=== PATIENT | female | born 1950 | race African-American/Black ===

== ENCOUNTER 2017-09-04 19:56 | Observation (INO) | payer OTHER ==
[2017-09-04] MEDS ORDERED: DEXTROSE 50%-WATER - 25 GM/50 ML VIAL IVPUSH ONE (20:18)
[2017-09-04 20:43] LABS: BASO # 0.1 # (0.1-1); BASO % 1.8 % (0-2.0); EOS % 0.3 % (0-4.5); LYMPH # 1.7 (8-40); MCH 29.2 pg (25.7-33.7); MCHC 32.6 g/dl (32.0-36.0); MEAN CELL VOLUME 89.4 fl (80-96); MEAN PLT VOLUME 8.7 fl (7.5-11.1); MONO # 0.6 # (3.8-10.2); NEUT # 5.2 # (42.8-82.8); NEUT % 67.7 % (42.8-82.8); PLATELET COUNT 327 K/MM3 (134-434); RDW 14.7 % (11.6-15.6); WHITE BLOOD COUNT 7.7 K/mm3 (4.0-10.0)
[2017-09-04] MEDS ORDERED: DEXTROSE 50%-WATER 25 GM/50 ML DISP.SYRIN ONE (20:43)
[2017-09-04 20:53] LABS: URINE APPEARANCE CLEAR; URINE BILIRUBIN NEGATIVE (NEGATIVE); URINE BLOOD 1+ (NEGATIVE); URINE COLOR STRAW; URINE GLUCOSE (UA) NEGATIVE (NEGATIVE); URINE KETONE NEGATIVE (NEGATIVE); URINE NITRITE NEGATIVE (NEGATIVE); URINE PROTEIN NEGATIVE (NEGATIVE); URINE UROBILINOGEN NEGATIVE mg/dL (0.2-1.0)
[2017-09-04 20:57] LABS: URINE LEUK ESTERASE 1+ (NEGATIVE)
[2017-09-04 20:59] LABS: URINE BACTERIA RARE /hpf (NONE SEEN); URINE MUCUS RARE; URINE RBC 9 /hpf (0-3); URINE WBC 7 /hpf (3-5)
--- NOTE | 2017-09-04 21:13 | PDOC ---
History of Present Illness <Richard Joseph - Last Filed: 09/04/17 22:17> - History of Present Illness Initial Comments: 09/04/17 21:06 "The patient is a 67 year old female, with a significant past medical history of DM and hypertension, who presents to the emergency department via EMS with low blood sugar. EMS reports that they were called because the family found the patient confused and not responding appropriately to questions. When they arrived, they checked her sugar and found it to be <20. They gave her glucagon and the sugar improved to 45, then subsequently to 60. Pt's mental status returned to baseline. The patient reports her last meal was around lunchtime and states she took her diabetes medication after eating this afternoon. Pt states that she is not taking insulin. However, upon review of her med list with her daughter via telephone, I found that she is taking Lantus and novolog. Daughter is unable to tell me the doses. Daughter states that pt has been having difficulty keeping track of her medications, often missing doses or taking them at the wrong times. Pt has had one prior episode of severe hypoglycemia which led to a similar clinical picture. Pt currently denies any complaints. She denies recent fevers, chills, headache or dizziness. She denies recent nausea, vomit, diarrhea or constipation. She denies recent dysuria, frequency, urgency or hematuria. She denies recent chest pain or shortness of breath. Allergies: NKA Past surgical history: None reported. Primary Care Physician: Dr. Kaur " <Clifford Mulligan - Last Filed: 09/04/17 22:53> - General Chief Complaint: Blood Sugar Problem Stated Complaint: Blood Sugar Problem Time Seen by Provider: 09/04/17 20:09 Past History <Richard Joseph - Last Filed: 09/04/17 22:17> - Suicide/Smoking/Psychosocial Hx Smoking History: Never smoked Have you smoked in the past 12 months: No Information on smoking cessation initiated: No Hx Alcohol Use: No Drug/Substance Use Hx: No <Clifford Mulligan - Last Filed: 09/04/17 22:53> - Past Medical History Allergies/Adverse Reactions: Allergies Allergy/AdvReac Type Severity Reaction Status Date / Time No Known Allergies Allergy Verified 09/04/17 20:07 Review of Systems - Review of Systems Comments:: 09/04/17 21:13 "GENERAL/CONSTITUTIONAL: +Confusion. No fever or chills. No weakness. HEAD, EYES, EARS, NOSE AND THROAT: No change in vision. No ear pain or discharge. No sore throat. CARDIOVASCULAR: No chest pain or shortness of breath. RESPIRATORY: No cough, wheezing, or hemoptysis. GASTROINTESTINAL: No nausea, vomiting, diarrhea or constipation. GENITOURINARY: No dysuria, frequency, or change in urination. MUSCULOSKELETAL: No joint or muscle swelling or pain. No neck or back pain. SKIN: No rash NEUROLOGIC: No headache, vertigo, loss of consciousness, or change in strength/sensation. ENDOCRINE: No increased thirst. No abnormal weight change. HEMATOLOGIC/LYMPHATIC: No anemia, easy bleeding, or history of blood clots. ALLERGIC/IMMUNOLOGIC: No hives or skin allergy. " <Clifford Mulligan - Last Filed: 09/04/17 22:53> *Physical Exam - Vital Signs Last Vital Signs Temp Pulse Resp BP Pulse Ox 98.1 F 61 14 131/102 100 09/04/17 20:07 09/04/17 20:07 09/04/17 20:07 09/04/17 20:07 09/04/17 20:07 <Richard Joseph - Last Filed: 09/04/17 22:17> - Vital Signs Last Vital Signs Temp Pulse Resp BP Pulse Ox 98.1 F 61 14 131/102 100 09/04/17 20:07 09/04/17 20:07 09/04/17 20:07 09/04/17 20:07 09/04/17 20:07 - Physical Exam Comments: 09/04/17 21:13 "GENERAL: Awake, alert, and confused, in no acute distress HEAD: No signs of trauma EYES: PERRLA, EOMI, sclera anicteric, conjunctiva clear ENT: Auricles normal inspection, hearing grossly normal, nares patent, oropharynx clear without exudates. Moist mucosa NECK: Nontender, no stepoffs, Normal ROM, supple, no lymphadenopathy, JVD, or masses LUNGS: Breath sounds equal, clear to auscultation bilaterally. No wheezes , and no crackles HEART: Regular rate and rhythm, normal S1 and S2, no murmurs, rubs or gallops ABDOMEN: Soft, nontender, normoactive bowel sounds. No guarding, no rebound. No masses EXTREMITIES: Normal range of motion, no edema. No clubbing or cyanosis. No cords , erythema, or tenderness NEUROLOGICAL: Cranial nerves II through XII intact. 5/5 strength and sensation in all extremities, Normal speech, normal gait SKIN: Warm, Dry, normal turgor, no rashes or lesions noted. " <Clifford Mulligan - Last Filed: 09/04/17 22:53> ED Treatment Course - LABORATORY CBC & Chemistry Diagram: 09/04/17 20:36 09/04/17 20:36 - ADDITIONAL ORDERS Additional order review: Laboratory Results 09/04/17 09/04/17 09/04/17 20:36 20:36 20:28 Sodium 142 Potassium 3.5 Chloride 105 Carbon Dioxide 29 Anion Gap 8 BUN 18 Creatinine 1.1 H Creat Clearance w eGFR 49.85 POC Glucometer Random Glucose 87 Calcium 9.3 Phosphorus 3.5 Magnesium 1.9 Total Bilirubin 0.5 AST 11 L ALT 17 Alkaline Phosphatase 86 Total Protein 8.1 Albumin 4.0 Urine Color Straw Urine Appearance Clear Urine pH 6.0 Ur Specific [place] 1.009 Urine Protein Negative Urine Glucose (UA) Negative Urine Ketones Negative Urine Blood 1+ H Urine Nitrite Negative Urine Bilirubin Negative Urine Urobilinogen Negative Urine WBC (Auto) 7 Urine RBC (Auto) 9 Ur Epithelial Cells Rare Urine Bacteria Rare Urine Mucus Rare 09/04/17 20:14 Sodium Potassium Chloride Carbon Dioxide Anion Gap BUN Creatinine Creat Clearance w eGFR POC Glucometer 71.90832 Random Glucose Calcium Phosphorus Magnesium Total Bilirubin AST ALT Alkaline Phosphatase Total Protein Albumin Urine Color Urine Appearance Urine pH Ur Specific [place] Urine Protein Urine Glucose (UA) Urine Ketones Urine Blood Urine Nitrite Urine Bilirubin Urine Urobilinogen Urine WBC (Auto) Urine RBC (Auto) Ur Epithelial Cells Urine Bacteria Urine Mucus 09/04/17 09/04/17 20:36 20:14 RBC 4.95 MCV 89.4 MCHC 32.6 RDW 14.7 MPV 8.7 Neutrophils % 67.7 Lymphocytes % 22.4 Monocytes % 7.8 Eosinophils % 0.3 Basophils % 1.8 POC Glucometer 71.18460 - Medications Given in the ED: ED Medications Discontinued Medications Generic Name Dose Route Start Last Admin Trade Name Freq PRN Reason Stop Dose Admin Dextrose 25 gm 09/04/17 20:18 12/25/17 20:53 D50w (Vial) - IVPUSH 09/04/17 20:19 25 gm NOW ONE Administration <Richard Joseph - Last Filed: 09/04/17 22:17> - LABORATORY CBC & Chemistry Diagram: 09/04/17 20:36 09/04/17 20:36 - ADDITIONAL ORDERS Additional order review: Laboratory Results 09/04/17 09/04/17 20:28 20:14 POC Glucometer 71.23788 Urine Color Straw Urine Appearance Clear Urine pH 6.0 Ur Specific [place] 1.009 Urine Protein Negative Urine Glucose (UA) Negative Urine Ketones Negative Urine Blood 1+ H Urine Nitrite Negative Urine Bilirubin Negative Urine Urobilinogen Negative Urine WBC (Auto) 7 Urine RBC (Auto) 9 Ur Epithelial Cells Rare Urine Bacteria Rare Urine Mucus Rare 09/04/17 09/04/17 20:36 20:14 RBC 4.95 MCV 89.4 MCHC 32.6 RDW 14.7 MPV 8.7 Neutrophils % 67.7 Lymphocytes % 22.4 Monocytes % 7.8 Eosinophils % 0.3 Basophils % 1.8 POC Glucometer 71.09416 - RADIOLOGY Radiology Studies Ordered: Category Date Time Status CHEST X-RAY PORTABLE* [RAD] Stat Radiology 09/04/17 20:19 Taken - Medications Given in the ED: ED Medications Discontinued Medications Generic Name Dose Route Start Last Admin Trade Name Yordan PRN Reason Stop Dose Admin Dextrose 25 gm 09/04/17 20:18 09/04/17 20:53 D50w (Vial) - IVPUSH 09/04/17 20:19 25 gm NOW ONE Administration <Clifford Mulligan - Last Filed: 09/04/17 22:53> Medical Decision Making - Medical Decision Making 09/04/17 21:13 67 F with altered mental status, now resolved, found to be 2/2 severe hypoglycemia. Pt now at neurologic baseline, AnO x3, with no neuro deficits. Pt' s hypoglycemia likely 2/2 med non-compliance given daughter's history that pt often confuses her medications. Pt is on Lantus and Novolog, unclear what doses and what time pt actually took the meds. - Labs - Frequent fingersticks - Will require obs admission due to long half-life of Lantus 09/04/17 22:53 CBC,CMP WBC 7.7 K/mm3 (4.0-10.0) 09/04/17 20:36 RBC 4.95 M/mm3 (3.60-5.2) 09/04/17 20:36 Hgb 14.4 GM/dL (10.7-15.3) 09/04/17 20:36 Hct 44.3 % (32.4-45.2) 09/04/17 20:36 MCV 89.4 fl (80-96) 09/04/17 20:36 MCH 29.2 pg (25.7-33.7) 09/04/17 20:36 MCHC 32.6 g/dl (32.0-36.0) 09/04/17 20:36 RDW 14.7 % (11.6-15.6) 09/04/17 20:36 Plt Count 327 K/MM3 (134-434) 09/04/17 20:36 MPV 8.7 fl (7.5-11.1) 09/04/17 20:36 Neutrophils % 67.7 % (42.8-82.8) 09/04/17 20:36 Lymphocytes % 22.4 % (8-40) 09/04/17 20:36 Monocytes % 7.8 % (3.8-10.2) 09/04/17 20:36 Eosinophils % 0.3 % (0-4.5) 09/04/17 20:36 Basophils % 1.8 % (0-2.0) 09/04/17 20:36 Sodium 142 mmol/L (136-145) 09/04/17 20:36 Potassium 3.5 mmol/L (3.5-5.1) 09/04/17 20:36 Chloride 105 mmol/L (98-107) 09/04/17 20:36 Carbon Dioxide 29 mmol/L (21-32) 09/04/17 20:36 Anion Gap 8 (8-16) 09/04/17 20:36 BUN 18 mg/dL (7-18) 09/04/17 20:36 Creatinine 1.1 mg/dL (0.55-1.02) H 09/04/17 20:36 Creat Clearance w eGFR 49.85 (>60) 09/04/17 20:36 POC Glucometer 71.87140 UNITS (80-120) 09/04/17 20:14 Random Glucose 87 mg/dL (74-106) 09/04/17 20:36 Calcium 9.3 mg/dL (8.5-10.1) 09/04/17 20:36 Phosphorus 3.5 mg/dL (2.5-4.9) 09/04/17 20:36 Magnesium 1.9 mg/dL (1.8-2.4) 09/04/17 20:36 Total Bilirubin 0.5 mg/dL (0.2-1.0) 09/04/17 20:36 AST 11 U/L (15-37) L 09/04/17 20:36 ALT 17 U/L (12-78) 09/04/17 20:36 Alkaline Phosphatase 86 U/L (45-117) 09/04/17 20:36 Total Protein 8.1 g/dl (6.4-8.2) 09/04/17 20:36 Albumin 4.0 g/dl (3.4-5.0) 09/04/17 20:[address] Lilly, who has accepted pt for admission to obs. <Clifford Mulligan - Last Filed: 09/04/17 22:53> *DC/Admit/Observation/Transfer - Attestations Scribe Attestion: 09/04/17 22:17 Documentation prepared by Richard Joseph, acting as medical office technician for Clifford Mulligan MD. <Richard Joseph - Last Filed: 09/04/17 22:17> - Discharge Dispostion Admit: Yes - Attestations Physician Attestion: 09/04/17 22:53 I, Dr. Clifford Mulligan MD, attest that this document has been prepared under my direction and personally reviewed by me in its entirety. I further attest, that it accurately reflects all work, treatment, procedures and medical decision -making performed by me. <Clifford Mulligan - Last Filed: 09/04/17 22:53> Diagnosis at time of Disposition: Hypoglycemia - Referrals Referrals: Alex aKur MD [Primary Care Provider] - - Patient Instructions - Post Discharge Activity
[2017-09-04 21:27] LABS: ANION GAP 8 (8-16); CALCIUM 9.3 mg/dL (8.5-10.1); CO2 29 mmol/L (21-32); CREATININE 1.1 mg/dL (0.55-1.02); GLUCOSE,RANDOM 87 mg/dL (74-106); PHOSPHOROUS 3.5 mg/dL (2.5-4.9); SGPT/ALT 17 U/L (12-78)
[2017-09-04 21:29] LABS: ALK PHOS 86 U/L (45-117); BILIRUBIN,TOTAL 0.5 mg/dL (0.2-1.0); TOT PROT 8.1 g/dl (6.4-8.2)
[2017-09-04 21:33] LABS: SGOT/AST 11 U/L (15-37)
[2017-09-04 22:52] LABS: URINE LEUK ESTERASE 1+ (NEGATIVE)
--- NOTE | 2017-09-04 23:13 | HP ---
CHIEF COMPLAINT: Hypoglycemia PCP: Dr. Kaur HISTORY OF PRESENT ILLNESS: 67 year old AA female with Pmhx of DM , HTN who presented to ED by EMS after she fund unresponsive. EMS found her to be hypoglycemic of 20 , they gave her glucagon and sugar that improve her blood sugar to 60. last meal was around 12 pm , she was ready to eat dinner when her grand daughter found her unresponsive. patient regain her consciousness before she got to the hospital. family denies any seizure activity before or after blacked out. on ED she denies any complains , she denies any fever, chills, headache, lightheadedness, N/V/D/C. She denies any chest pain, palpitation, sob, cough, abdominal pain, or any urinary symptoms. she had similar one episode before . she reports having brain surgery this year for pituitary tumor. ER course was notable for: (1) Glu 87 , D5w (2) BUn/Cr 18/1.1 (3) CXR Recent Travel:denies PAST MEDICAL HISTORY: DM, HTN , Pituitary tumor PAST SURGICAL HISTORY: brain surgery this year for Pituitary tumor Social History: Smoking:denies Alcohol:denies Drugs: denies Family History: Allergies No Known Allergies Allergy (Verified 09/04/17 20:07) HOME MEDICATIONS: REVIEW OF SYSTEMS CONSTITUTIONAL: Absent: fever, chills, diaphoresis, generalized weakness, malaise, loss of appetite, weight change HEENT: Absent: rhinorrhea, nasal congestion, throat pain, throat swelling, difficulty swallowing, mouth swelling, ear pain, eye pain, visual changes CARDIOVASCULAR: Absent: chest pain, syncope, palpitations, irregular heart rate, lightheadedness , peripheral edema RESPIRATORY: Absent: cough, shortness of breath, dyspnea with exertion, orthopnea, wheezing, stridor, hemoptysis GASTROINTESTINAL: Absent: abdominal pain, abdominal distension, nausea, vomiting, diarrhea, constipation, melena, hematochezia GENITOURINARY: Absent: dysuria, frequency, urgency, hesitancy, hematuria, flank pain, genital pain MUSCULOSKELETAL: Absent: myalgia, arthralgia, joint swelling, back pain, neck pain SKIN: Absent: rash, itching, pallor HEMATOLOGIC/IMMUNOLOGIC: Absent: easy bleeding, easy bruising, lymphadenopathy, frequent infections ENDOCRINE: Absent: unexplained weight gain, unexplained weight loss, heat intolerance, cold intolerance NEUROLOGIC: Absent: headache, focal weakness or paresthesias, dizziness, unsteady gait, seizure, mental status changes, bladder or bowel incontinence PSYCHIATRIC: Absent: anxiety, depression, suicidal or homicidal ideation, hallucinations. PHYSICAL EXAMINATION Vital Signs - 24 hr 09/04/17 20:07 Temperature 98.1 F Pulse Rate 61 Respiratory 14 Rate Blood Pressure 131/102 O2 Sat by Pulse 100 Oximetry (%) GENERAL: Awake, alert, and fully oriented, in no acute distress. HEAD: Normal with no signs of trauma. EYES: Pupils equal, round and reactive to light, sclera anicteric, conjunctiva clear. EARS, NOSE, THROAT: Moist mucous membranes. NECK: Normal range of motion, supple without lymphadenopathy, JVD, LUNGS: Breath sounds equal, clear to auscultation bilaterally. No wheezes, and no crackles. No accessory muscle use. HEART: Regular rate and rhythm, normal S1 and S2 without murmur, rub or gallop. ABDOMEN: Soft, nontender, not distended, normoactive bowel sounds, no guarding, no rebound, no masses. No hepatomegaly or splenomegaly. LOWER EXTREMITIES: 2+ pulses, warm, well-perfused. No calf tenderness. No peripheral edema. NEUROLOGICAL: good mentation Normal speech. Normal gait. PSYCHIATRIC: Cooperative. Good eye contact. Appropriate mood and affect. SKIN: Warm, dry, normal turgor, no rashes or lesions noted, normal capillary refill. Laboratory Results - last 24 hr 09/04/17 09/04/17 09/04/17 20:14 20:28 20:36 WBC RBC Hgb Hct MCV MCH MCHC RDW Plt Count MPV Neutrophils % Lymphocytes % Monocytes % Eosinophils % Basophils % Sodium Potassium Chloride Carbon Dioxide Anion Gap BUN Creatinine Creat Clearance w eGFR POC Glucometer 71.75001 Random Glucose Calcium Phosphorus Magnesium 1.9 Total Bilirubin AST ALT Alkaline Phosphatase Total Protein Albumin Urine Color Straw Urine Appearance Clear Urine pH 6.0 Ur Specific [place] 1.009 Urine Protein Negative Urine Glucose (UA) Negative Urine Ketones Negative Urine Blood 1+ H Urine Nitrite Negative Urine Bilirubin Negative Urine Urobilinogen Negative Ur Leukocyte Esterase 1+ H Urine WBC (Auto) 7 Urine RBC (Auto) 9 Ur Epithelial Cells Rare Urine Bacteria Rare Urine Mucus Rare 09/04/17 09/04/17 20:36 20:36 WBC 7.7 RBC 4.95 Hgb 14.4 Hct 44.3 MCV 89.4 MCH 29.2 MCHC 32.6 RDW 14.7 Plt Count 327 MPV 8.7 Neutrophils % 67.7 Lymphocytes % 22.4 Monocytes % 7.8 Eosinophils % 0.3 Basophils % 1.8 Sodium 142 Potassium 3.5 Chloride 105 Carbon Dioxide 29 Anion Gap 8 BUN 18 Creatinine 1.1 H Creat Clearance w eGFR 49.85 POC Glucometer Random Glucose 87 Calcium 9.3 Phosphorus 3.5 Magnesium Total Bilirubin 0.5 AST 11 L ALT 17 Alkaline Phosphatase 86 Total Protein 8.1 Albumin 4.0 Urine Color Urine Appearance Urine pH Ur Specific [place] Urine Protein Urine Glucose (UA) Urine Ketones Urine Blood Urine Nitrite Urine Bilirubin Urine Urobilinogen Ur Leukocyte Esterase Urine WBC (Auto) Urine RBC (Auto) Ur Epithelial Cells Urine Bacteria Urine Mucus CBC, BMP 09/04/17 20:36 09/04/17 20:36 09/04/17 CXR : reviewed ASSESSMENT/PLAN: 67 year old AA female with Pmhx of DM , HTN who presented to ED by EMS after she fund unresponsive , was found to have sever hypoglycemia and was admitted for further evaluation # Hypoglycemia * Hold home meds * ISS * BGM Q4h * hgbA1c * monitor * admit to observe * please confirm meds with pcp. * low sodium diabetic diet * # ABIMAEL , possible 2/2 low oral intake * BUN/cr 18/1.1 * IV fluids * repeat BMP in AM * urine lytes * avoid nephrotoxic agents * # HTN, continue home meds # Moribid obesity * consulted about loosing weight with goal one pound per week * consulted about diabetic diet, witl small multiple meals , and modified life style #FEN * D5w received in ED , * E: WNL , monitor * N: low sodium diabetic diet # proph * SCDs both legs * # dispo * Admit to obs Visit type - Emergency Visit Emergency Visit: Yes ED Registration Date: 09/04/17 Care time: The patient presented to the Emergency Department on the above date and was hospitalized for further evaluation of their emergent condition. - New Patient This patient is new to me today: Yes Date on this admission: 09/05/17 - Critical Care Critical Care patient: No
[2017-09-05] MEDS ORDERED: DEXTROSE 5%-0.45% SALINE 1,000 ML IV SCH (01:15)
[2017-09-05] MEDS ORDERED: HEPARIN NA (PORCINE) 5,000 UNITS/ML 1ML VIAL ONE (06:13)
[2017-09-05] MEDS: HEPARIN NA (PORCINE) 5,000 UNITS/ML 1ML VIAL SQ SCH ×2 (06:24→16:02)
--- NOTE | 2017-09-05 06:40 | PN ---
Teaching Attending Note Name of Resident: Juanito Tolentino ATTENDING PHYSICIAN STATEMENT I saw and evaluated the patient. I reviewed the resident's note and discussed the case with the resident. I agree with the resident's findings and plan as documented. SUBJECTIVE: OBJECTIVE: ASSESSMENT AND PLAN: patient was admitted for hypoglycemia monitor for signs of hypoglycemia education for insulin use
[2017-09-05 06:52] LABS: BASO # 0.1 # (0.1-1); EOS # 0.1 # (0-4.5); EOS % 1.5 % (0-4.5); LYMPH # 2.4 (8-40); MCH 29.9 pg (25.7-33.7); MCHC 33.4 g/dl (32.0-36.0); MEAN CELL VOLUME 89.5 fl (80-96); MEAN PLT VOLUME 9.2 fl (7.5-11.1); MONO # 0.6 # (3.8-10.2); NEUT % 60.5 % (42.8-82.8); PLATELET COUNT 318 K/MM3 (134-434); RDW 14.9 % (11.6-15.6); WHITE BLOOD COUNT 8.3 K/mm3 (4.0-10.0)
[2017-09-05] MEDS ORDERED: LEVOTHYROXINE NA 75 MCG TABLET (FP) PO SCH (07:00)
[2017-09-05 07:20] LABS: ALBUMIN 3.4 g/dl (3.4-5.0); ANION GAP 10 (8-16); BILIRUBIN,TOTAL 0.4 mg/dL (0.2-1.0); CALCIUM 9.6 mg/dL (8.5-10.1); CO2 28 mmol/L (21-32); GLUCOSE,RANDOM 100 mg/dL (74-106); SGOT/AST 12 U/L (15-37); SGPT/ALT 16 U/L (12-78); TOT PROT 6.7 g/dl (6.4-8.2)
[2017-09-05 07:21] LABS: ALK PHOS 81 U/L (45-117)
[2017-09-05] MEDS: INSULIN SLIDING SCALE (NOVOLOG) 1 VIAL SQ SCH ×3 (08:13→16:43)
[2017-09-05] MEDS ORDERED: PANTOPRAZOLE 40 MG TABLET (FP) PO SCH (10:00)
[2017-09-05] MEDS ORDERED: METOPROLOL TARTRATE 50 MG TABLET (FP) PO SCH (10:00)
[2017-09-05] MEDS ORDERED: amLODIPine BESYLATE 5 MG TABLET (FP) PO SCH (10:00)
[2017-09-05] MEDS ORDERED: CHOLECALCIFEROL (VITAMIN D3) 1,000 UNIT TABLET (FP) PO SCH (10:00)
[2017-09-05] MEDS ORDERED: POTASSIUM CHLORIDE TABS 20 MEQ TABLET.ER (FP) PO ONE ×2 (10:26→10:45)
[2017-09-05 12:01] VITALS: BMI 30.1
[2017-09-05] MEDS ORDERED: INSULIN (NOVOLOG) ASPART 100 UNITS/ML 10ML VIAL ONE (12:41)
--- NOTE | 2017-09-05 13:10 | EKG ---
Test Reason : Blood Pressure : / mmHG Vent. Rate : 061 BPM Atrial Rate : 061 BPM P-R Int : 120 ms QRS Dur : 102 ms QT Int : 428 ms P-R-T Axes : 050 002 089 degrees QTc Int : 430 ms NORMAL SINUS RHYTHM NONSPECIFIC ST AND T WAVE ABNORMALITY ABNORMAL ECG WHEN COMPARED WITH ECG OF 04-SEP-2017 20:56, PREVIOUS ECG HAS UNDETERMINED RHYTHM, NEEDS REVIEW Confirmed by MD Joseph, Pepe ([id number]) on 09/05/2017 1:09:59 PM Referred By: Confirmed By:Pepe Ruiz MD
--- NOTE | 2017-09-05 14:49 | DS ---
Physical Examination Vital Signs: Vital Signs Temperature 36.8 C 09/05/17 09:00 Pulse Rate 54 L 09/05/17 12:32 Respiratory Rate 18 09/05/17 12:32 Blood Pressure 128/70 09/05/17 12:32 O2 Sat by Pulse Oximetry (%) 98 09/05/17 12:32 Constitutional: Yes: Well Nourished, No Distress, Calm Cardiovascular: Yes: Regular Rate and Rhythm. No: Gallop, Murmur, Rub Respiratory: Yes: Regular, CTA Bilaterally. No: Rales, Rhonchi, Wheezes Gastrointestinal: Yes: Normal Bowel Sounds, Soft. No: Distention, Tenderness Extremities: Yes: WNL Edema: No Labs: CBC, BMP 09/05/17 06:36 09/05/17 06:36 Discharge Summary Reason For Visit: HYPOGLYCEMIA Current Active Problems Hypoglycemia (Acute) Hospital Course: Ms Montiel is a very pleasant 67 year old female who comes in with hypoglycemia. She says she took her metformin but did not eat and that is what caused her blood sugar to drop. She was admitted under observation. She was given dextrose in saline and her glucose improved. Her IVFs were stopped and she was given lunch which she tolerated. She is currently safe for discharge home. She was instructed to change her metformin to daily and have close follow up with Dr Kaur. 31 minutes spent in preparation of this discharge Condition: Good - Instructions Diet, Activity, Other Instructions: resume previous diet and activity Referrals: Alex Kaur MD [Primary Care Provider] - Disposition: HOME - Home Medications Comprehensive Discharge Medication List: Ambulatory Orders Amlodipine Besylate 5 mg PO DAILY 09/05/17 Cholecalciferol (Vitamin D3) [Vitamin D3] 2,000 unit PO DAILY 09/05/17 Levothyroxine Sodium [Levo-T] 75 mcg PO DAILY 09/05/17 Metformin HCl 500 mg PO DAILY #30 tablet 09/05/17 Metoprolol Tartrate 50 mg PO BID 09/05/17 Pantoprazole Sodium 40 mg PO DAILY 09/05/17
[2017-09-05 15:34] VITALS: BP 116/65; PULSE 59; TEMP 98.2
== END 2017-09-05 19:12 | disposition home or self-care (01) ==
LOC: JER 19:56 → JERBED 22:53 → J5S 09-05 13:30
PROVIDERS: ADMIT Internal Medicine; ATTEND Internal Medicine
PROC: 3E033GC Introduction of Other Therapeutic Substance into Peripheral Vein, Percutaneous Approach (ICD-10-PCS; principal; 2017-09-04)
PROC: 3E013VG Introduction of Insulin into Subcutaneous Tissue, Percutaneous Approach (ICD-10-PCS; 2017-09-04)
DX: E11.649 Type 2 diabetes mellitus with hypoglycemia without coma (principal); Z79.4 Long term (current) use of insulin; Z79.84 Long term (current) use of oral hypoglycemic drugs; N17.9 Acute kidney failure, unspecified; I10 Essential (primary) hypertension; E66.01 Morbid (severe) obesity due to excess calories; Z68.30 Body mass index [BMI] 30.0-30.9, adult
CPT/HCPCS: 36415; 71010-TC; 80053; 81003; 81015; 83735; 84100; 85025; 93005; 93010; 96372; 96374; 99283-25; G0378; J1644

== ENCOUNTER 2017-09-24 22:43 | Inpatient (IN) | payer OTHER ==
--- NOTE | 2017-09-24 23:03 | PDOC ---
Attending Attestation - Resident Resident Name: Jose Ramos - ED Attending Attestation I have performed the following: I have examined & evaluated the patient, The case was reviewed & discussed with the resident, I agree w/resident's findings & plan - HPI HPI: 09/25/17 01:39 Pt comes with AMS. Pt comes with lethargy and fever. Pt had a seizure in the ambulance as she was driving here. Pt has normal labs, except for a positive troponin - which is prossibly solely cardiac damage, as she has flipped and flat Lateral T waves on the EKG. She is influenza A positive, and we are unable to give her Tamiflu, as she is altered. - Physicial Exam PE: 09/24/17 23:54 pt is febrile; unkempt; pt has coarse breath sounds bilaterally; likely aspirated after her seizure; or she has a pneumonia. Pt - Medical Decision Making 09/25/17 00:28 Pt has + influenza A 09/25/17 00:49 Patient Name: GERDA MACHUCA THIS IS A PRELIMINARY REPORT FROM [facility] [employer] DATE OF SERVICE: 2017-09-25 00:04:13 IMAGES: 141 EXAM: CT HEAD without contrast HISTORY: New onset lethargy COMPARISON: None. FINDINGS: The ventricular system is midline and nondilated. The sulcal pattern is normal for the patient's age. Mild small vessel ischemic changes are noted. There is a 2.9 x 2.9 cm suprasellar mass with minimal calcification. Neoplasm and aneurysm are both considered. There is no bleed, extra-axial fluid collection or mass effect. No skull fracture or skull lesion is identified. Diffuse sinus opacification consistent with sinusitis. The bilateral mastoid air cells are clear. IMPRESSION: 2.9 cm suprasellar mass may indicate neoplasm or aneurysm and should be followed up with enhanced MRI/MRA or enhanced CT/CTA. Diffuse sinusitis. THIS DOCUMENT HAS BEEN ELECTRONICALLY SIGNED 09/25/17 01:00 Pt will need an MRI/MRA in the AM to eval the suprasellar findings (we know that she has a pituitary tumor, but our understanding is that she had the tumor removed.) Pt has low O2 Sat on RA; she has coarse BS bilaterally. She may have pneumonia or aspiration. CXR demonstrates enlarged heart and right sided increased markings in the lung ugalde Pt has dry mouth poor dentition. She appears dehydrated. Na/K+ electrolytes are normal EKG shows flat flipped T waves laterally. She has a + trop. Pt is febrile to 103 09/25/17 01:11 Pt admitted to [facility] last month. We put a page out for them. 09/25/17 02:05 Patient Name: GERDA MACHUCA THIS IS A PRELIMINARY REPORT FROM [facility] [employer] DATE OF SERVICE: 2017-09-24 23:31:01 IMAGES: 2 EXAM: XR CHEST HISTORY: Rule out pneumonia COMPARISON: None. FINDINGS: Left ventricular hypertrophy is noted. Left lower lobe consolidation may represent pneumonia. There is a questionable small left pleural effusion. IMPRESSION: Possible left lower lobe pneumonia with small effusion.
--- NOTE | 2017-09-24 23:11 | PDOC ---
History of Present Illness <Hallie Aquino - Last Filed: 09/25/17 02:20> - General History Source: Patient Exam Limitations: No Limitations - History of Present Illness Initial Comments: 09/24/17 23:08 The patient is a 67F with a PMH of HTN, DM, seizure disorder, hypothyroidism, s/ p pituitary ca removal who presents to the ED from home with lethargy. Hx is provided only by EMS. EMS states that the patient has had increased lethargy and AMS starting today. She's had decreased PO intake. EMS states that the patient had a seizure on their way to the ambulance. This was stopped with 5 midazolam. No other history was provided. <Jose Ramos - Last Filed: 09/25/17 03:31> - General Chief Complaint: Lethargy Stated Complaint: ALTERED MENTAL STATUS Time Seen by Provider: 09/24/17 22:47 Past History <Hallie Aquino - Last Filed: 09/25/17 02:20> - Past Medical History Anemia: No Asthma: No Cancer: No Cardiac Disorders: No CVA: No COPD: No CHF: No Dementia: No Diabetes: Yes GI Disorders: No Disorders: No HTN: Yes Hypercholesterolemia: No Liver Disease: No Seizures: No Thyroid Disease: No - Surgical History Abdominal Surgery: No Appendectomy: No Cardiac Surgery: No Cholecystectomy: No Lung Surgery: No Neurologic Surgery: No Orthopedic Surgery: No - Suicide/Smoking/Psychosocial Hx Smoking History: Unknown if ever smoked Have you smoked in the past 12 months: No Information on smoking cessation initiated: No Hx Alcohol Use: No Drug/Substance Use Hx: No Substance Use Type: None Hx Substance Use Treatment: No <Jose Ramos - Last Filed: 09/25/17 03:31> - Past Medical History Allergies/Adverse Reactions: Allergies Allergy/AdvReac Type Severity Reaction Status Date / Time No Known Allergies Allergy Verified 09/24/17 22:46 Home Medications: Ambulatory Orders Amlodipine Besylate 5 mg PO DAILY 09/05/17 Cholecalciferol (Vitamin D3) [Vitamin D3] 2,000 unit PO DAILY 09/05/17 Levothyroxine Sodium [Levo-T] 75 mcg PO DAILY 09/05/17 Metformin HCl 500 mg PO DAILY #30 tablet 09/05/17 Metoprolol Tartrate 50 mg PO BID 09/05/17 Pantoprazole Sodium 40 mg PO DAILY 09/05/17 Review of Systems - Review of Systems Able to Perform ROS?: No (Clinical condition) Is the patient limited Turkmen proficient: No <Jose Ramos - Last Filed: 09/25/17 03:31> *Physical Exam - Vital Signs Last Vital Signs Temp Pulse Resp BP Pulse Ox 103.9 F H 92 H 16 148/92 93 L 09/25/17 00:01 09/24/17 22:46 09/24/17 22:46 09/24/17 22:46 09/24/17 22:46 <Darcy Aquinoreen - Last Filed: 09/25/17 02:20> - Vital Signs Last Vital Signs Temp Pulse Resp BP Pulse Ox 103.4 F H 92 H 16 148/92 93 L 09/24/17 23:03 09/24/17 22:46 09/24/17 22:46 09/24/17 22:46 09/24/17 22:46 - Physical Exam Comments: 09/24/17 23:32 GENERAL: Well developed, well nourished. Lethargic. HEENT: Normocephalic, atraumatic. Hearing grossly normal. Moist mucous membranes. NECK: Supple. Full ROM. No JVD. CARDIOVASCULAR: Regular rate and rhythm. No murmurs, rubs, or gallops. PULMONARY: No evidence of respiratory distress. Transmitted upper respiratory sounds heard bilaterally. ABDOMINAL: Soft. Non-tender. Non-distended. No rebound or guarding. MUSCULOSKELETAL: No bony deformities or tenderness. EXTREMITIES: No cyanosis. No clubbing. No edema. No calf tenderness. SKIN: Warm and dry. Normal capillary refill. No rashes. No jaundice. NEUROLOGICAL: Lethargic, localizes to painful stimuli, not responding to verbal stimuli. PSYCHIATRIC: Cooperative. Good eye contact. Appropriate mood and affect. <Jose Ramos - Last Filed: 09/25/17 03:31> ED Treatment Course - LABORATORY CBC & Chemistry Diagram: 09/24/17 23:55 09/24/17 23:55 - ADDITIONAL ORDERS Additional order review: Laboratory Results 09/24/17 09/24/17 09/24/17 23:55 23:55 23:55 PT with INR 13.10 H INR 1.16 H PTT (Actin FS) 32.8 Sodium 140 Potassium 3.5 Chloride 104 Carbon Dioxide 27 Anion Gap 9 BUN 6 L Creatinine 1.2 H Creat Clearance w eGFR 45.09 Random Glucose 137 H Calcium 8.9 Total Bilirubin 0.9 D AST 62 H D ALT 59 D Alkaline Phosphatase 69 Creatine Kinase 93 Troponin I 0.13 H Total Protein 7.2 Albumin 3.7 09/24/17 00:01 Influenza Types A,B Antigen (SIERRA) - Preliminary Nasopharyngeal Swab - Preliminary 09/24/17 23:55 RBC 4.68 MCV 88.7 MCHC 33.4 RDW 14.9 MPV 9.7 Neutrophils % 62.6 Lymphocytes % 21.4 D Monocytes % 13.3 H Eosinophils % 1.4 Basophils % 1.3 - RADIOLOGY Radiology Studies Ordered: Category Date Time Status CHEST X-RAY PORTABLE* [RAD] Stat Radiology 09/24/17 23:03 Taken - Medications Given in the ED: ED Medications Discontinued Medications Generic Name Dose Route Start Last Admin Trade Name Freq PRN Reason Stop Dose Admin Acetaminophen 1,000 mg 09/24/17 23:29 09/24/17 23:53 Ofirmev Injection - IVPB 09/24/17 23:30 1,000 mg ONCE ONE Administration Sodium Chloride 1,000 ml 09/24/17 23:14 09/24/17 23:52 Normal Saline - IV 09/24/17 23:15 1,000 ml ONCE ONE Administration <Hallie Aquino - Last Filed: 09/25/17 02:20> - LABORATORY CBC & Chemistry Diagram: 09/24/17 23:55 09/24/17 23:55 <Jose Ramos - Last Filed: 09/25/17 03:31> Medical Decision Making - Medical Decision Making 09/25/17 03:21 The patient is a 67F with a PMH of HTN, DM, seizure disorder, hypothyroidism, s/ p pituitary ca removal who presents to the ED with lethargy. BGL was 170. Septic protocol is being followed as the patient has a temp of 103. Flu A positive. Fluids and broad spectrum abx with IV tylenol being given. CXR shows new onset PNA. Attending admitted pt to ICU for further monitoring. <Jose Ramos - Last Filed: 09/25/17 03:31> *DC/Admit/Observation/Transfer - Discharge Dispostion Admit: Yes <Hallie Aquino - Last Filed: 09/25/17 02:20> <Jose Ramos - Last Filed: 09/25/17 03:31> Diagnosis at time of Disposition: Seizure, Influenza A, Altered mental status, Fever, Rhonchi, Pneumonia - Discharge Dispostion Condition at time of disposition: Guarded
[2017-09-24] MEDS ORDERED: SODIUM CHLORIDE 0.9% 1000 ML INFUS.BAG IV ONE (23:14)
[2017-09-24] MEDS ORDERED: ACETAMINOPHEN 1000 MG/100 ML VIAL (NON FORMULARY) IVPB ONE (23:29)
[2017-09-24] MEDS ORDERED: ACETAMINOPHEN INJECTION 100 ML IVPB ONE (23:54)
[2017-09-25] LABS: BASO % 1.3 % (0-2.0); EOS % 1.4 % (0-4.5); HEMATOCRIT 41.5 % (32.4-45.2); HEMOGLOBIN 13.9 GM/dL (10.7-15.3); LYMPH % 21.4 % (8-40); MCH 29.7 pg (25.7-33.7); MCHC 33.4 g/dl (32.0-36.0); MEAN CELL VOLUME 88.7 fl (80-96); MEAN PLT VOLUME 9.7 fl (7.5-11.1); MONO % 13.3 % (3.8-10.2); NEUT % 62.6 % (42.8-82.8); PLATELET COUNT 245 K/MM3 (134-434); RBC 4.68 M/mm3 (3.60-5.2); RDW 14.9 % (11.6-15.6)
[2017-09-25 00:22] LABS: INR 1.16 (0.82-1.09); PROTHROMBIN TIME (PATIENT) 13.1 SEC (9.98-11.88)
[2017-09-25 00:28] LABS: ALBUMIN 3.7 g/dl (3.4-5.0); ANION GAP 9 (8-16); BILIRUBIN,TOTAL 0.9 mg/dL (0.2-1.0); BLOOD UREA NITROGEN 6 mg/dL (7-18); CALCIUM 8.9 mg/dL (8.5-10.1); CHLORIDE 104 mmol/L (98-107); CO2 27 mmol/L (21-32); CREATININE 1.2 mg/dL (0.55-1.02); GLUCOSE,RANDOM 137 mg/dL (74-106); POTASSIUM 3.5 mmol/L (3.5-5.1); SGOT/AST 62 U/L (15-37); SGPT/ALT 59 U/L (12-78); SODIUM 140 mmol/L (136-145); TOT PROT 7.2 g/dl (6.4-8.2)
[2017-09-25 00:31] LABS: ALK PHOS 69 U/L (45-117)
[2017-09-25 00:47] LABS: VENOUS PC02 44.3 mmHg (38-52); VENOUS PH 7.36 (7.32-7.42); VENOUS PO2 35.2 mmHg (28-48)
[2017-09-25] MEDS ORDERED: VANCOMYCIN 1,000 MG in DEXTROSE 5%-WATER - 250 ML IVPB ONE (01:04)
[2017-09-25] MEDS ORDERED: PIPERACILLIN/TAZOB 4.5 GM/100 ML PRE-DOCKED IVPB ONE (01:04)
[2017-09-25 02:39] LABS: URINE APPEARANCE CLEAR; URINE BILIRUBIN NEGATIVE (NEGATIVE); URINE BLOOD 1+ (NEGATIVE); URINE COLOR YELLOW; URINE GLUCOSE (UA) NEGATIVE (NEGATIVE); URINE KETONE NEGATIVE (NEGATIVE); URINE LEUK ESTERASE NEGATIVE (NEGATIVE); URINE NITRITE NEGATIVE (NEGATIVE); URINE PROTEIN NEGATIVE (NEGATIVE); URINE UROBILINOGEN NEGATIVE mg/dL (0.2-1.0)
[2017-09-25 02:49] LABS: EPI CELLS RARE /HPF (FEW); URINE MUCUS RARE
[2017-09-25] MEDS ORDERED: VANCOMYCIN 1 GRAM (PRE-DOCKED) 1,000 MG/250 ML BAG IVPB ONE (02:56)
[2017-09-25] MEDS ORDERED: ACETAMINOPHEN 325 MG TABLET (FP) PO PRN (03:24)
[2017-09-25] MEDS ORDERED: ASPIRIN 81 MG CHEWABLE TABLETS PO ONE (03:56)
[2017-09-25 04:14] VITALS: BMI 30.7
--- NOTE | 2017-09-25 04:16 | HP ---
CHIEF COMPLAINT: altered mental status, seizure activity PCP: glenna HISTORY OF PRESENT ILLNESS: This is a 67 year old female with a significant past medical history of pituitary tumor s/p resection 06/2017 and DM who presented to the ED via EMS for altered mental status. EMS also reports seizure activity on the way here for which the patient received versed 5mg. Pt is now awake and talking but very slow to respond to questions. Unclear what her baseline is. No family is present. ER course was notable for: (1) AMS, unresponsive to verbal stimuli for several hours (2) troponin 0.13 Recent Travel: pt denies PAST MEDICAL HISTORY: HTN, Diabetes, seizure disorder, hypothyroidism, pituitary tumor s/p resection PAST SURGICAL HISTORY: pituitary tumor resection 06/2017 (?[email or web address]) Social History: Smoking: pt denies Alcohol: pt denies Drugs: pt denies Family History: pt unable to provide answers to same Allergies No Known Allergies Allergy (Verified 09/24/17 22:46) HOME MEDICATIONS: 3 Medication Instructions Recorded Amlodipine Besylate 5 mg PO DAILY 09/05/17 Cholecalciferol (Vitamin D3) 2,000 unit PO DAILY 09/05/17 [Vitamin D3] Levothyroxine Sodium [Levo-T] 75 mcg PO DAILY 09/05/17 Metformin HCl 500 mg PO DAILY #30 tablet 09/05/17 Metoprolol Tartrate 50 mg PO BID 09/05/17 Pantoprazole Sodium 40 mg PO DAILY 09/05/17 humalog as per EMS lantus as per EMS keppra as per EMS REVIEW OF SYSTEMS CONSTITUTIONAL: Present: fever Absent: chills, diaphoresis, generalized weakness, malaise, loss of appetite, weight change HEENT: Absent: rhinorrhea, nasal congestion, throat pain, throat swelling, difficulty swallowing, mouth swelling, ear pain, eye pain, visual changes CARDIOVASCULAR: Absent: chest pain, syncope, palpitations, irregular heart rate, lightheadedness , peripheral edema RESPIRATORY: Absent: cough, shortness of breath, dyspnea with exertion, orthopnea, wheezing, stridor, hemoptysis GASTROINTESTINAL: Absent: abdominal pain, abdominal distension, nausea, vomiting, diarrhea, constipation, melena, hematochezia GENITOURINARY: Absent: dysuria, frequency, urgency, hesitancy, hematuria, flank pain, genital pain MUSCULOSKELETAL: Absent: myalgia, arthralgia, joint swelling, back pain, neck pain SKIN: Absent: rash, itching, pallor HEMATOLOGIC/IMMUNOLOGIC: Absent: easy bleeding, easy bruising, lymphadenopathy, frequent infections ENDOCRINE: Absent: unexplained weight gain, unexplained weight loss, heat intolerance, cold intolerance NEUROLOGIC: Present: mental status changes Absent: headache, focal weakness or paresthesias, dizziness, unsteady gait, seizure, bladder or bowel incontinence PSYCHIATRIC: Absent: anxiety, depression, suicidal or homicidal ideation, hallucinations. PHYSICAL EXAMINATION Vital Signs - 24 hr 3 09/24/17 09/24/17 09/25/17 22:46 23:03 00:01 Temperature 103.4 F H 103.9 F H Pulse Rate 92 H Respiratory 16 Rate Blood Pressure 148/92 O2 Sat by Pulse 93 L Oximetry (%) GENERAL: Awake, alert, and oriented to person, hospital (unsure which one), and president, but not exact date, in no acute distress. HEAD: Normal with no signs of trauma. EYES: Pupils equal, round and reactive to light, extraocular movements intact, sclera anicteric, conjunctiva clear. No lid lag. EARS, NOSE, THROAT: Ears normal, nares patent, oropharynx clear without exudates. Moist mucous membranes. NECK: Normal range of motion, supple without lymphadenopathy, JVD, or masses. LUNGS: Breath sounds equal, clear to auscultation bilaterally. No wheezes, and no crackles. No accessory muscle use. HEART: Regular rate and rhythm, normal S1 and S2 without murmur, rub or gallop. ABDOMEN: Soft, nontender, not distended, normoactive bowel sounds, no guarding, no rebound, no masses. No hepatomegaly or splenomegaly. MUSCULOSKELETAL: Normal range of motion at all joints. No bony deformities or tenderness. No CVA tenderness. UPPER EXTREMITIES: 2+ pulses, warm, well-perfused. No cyanosis. No clubbing. No peripheral edema. LOWER EXTREMITIES: 2+ pulses, warm, well-perfused. No calf tenderness. No peripheral edema. NEUROLOGICAL: Cranial nerves II-XII intact. Normal speech. Normal gait. PSYCHIATRIC: Cooperative. Good eye contact. Appropriate mood and affect. SKIN: Warm, dry, normal turgor, no rashes or lesions noted, normal capillary refill. Laboratory Results - last 24 hr 3 09/24/17 09/24/17 09/24/17 09/25/17 23:55 23:55 23:55 00:30 WBC 7.0 RBC 4.68 Hgb 13.9 Hct 41.5 MCV 88.7 MCH 29.7 MCHC 33.4 RDW 14.9 Plt Count 245 D MPV 9.7 Neutrophils % 62.6 Lymphocytes % 21.4 D Monocytes % 13.3 H Eosinophils % 1.4 Basophils % 1.3 PT with INR 13.10 H INR 1.16 H PTT (Actin FS) 32.8 VBG pH 7.36 POC VBG pCO2 44.3 POC VBG pO2 35.2 Mixed VBG HCO3 24.3 Sodium 140 Potassium 3.5 Chloride 104 Carbon Dioxide 27 Anion Gap 9 BUN 6 L Creatinine 1.2 H Creat Clearance w eGFR 45.09 Random Glucose 137 H Lactic Acid 1.5 Calcium 8.9 Total Bilirubin 0.9 D AST 62 H D ALT 59 D Alkaline Phosphatase 69 Creatine Kinase 93 Troponin I 0.13 H Total Protein 7.2 Albumin 3.7 Urine Color Urine Appearance Urine pH Ur Specific [place] Urine Protein Urine Glucose (UA) Urine Ketones Urine Blood Urine Nitrite Urine Bilirubin Urine Urobilinogen Ur Leukocyte Esterase Urine WBC (Auto) Urine RBC (Auto) Ur Epithelial Cells Urine Mucus Urine Test Results 3 Urine Color Yellow 09/25/17 01:22 Urine Appearance Clear 09/25/17 01:22 Urine pH 5.0 (5.0-8.0) 09/25/17 01:22 Ur Specific [place] 1.017 (1.001-1.035) 09/25/17 01:22 Urine Protein Negative (NEGATIVE) 09/25/17 01:22 Urine Glucose (UA) Negative (NEGATIVE) 09/25/17 01:22 Urine Ketones Negative (NEGATIVE) 09/25/17 01:22 Urine Blood 1+ (NEGATIVE) H 09/25/17 01:22 Urine Nitrite Negative (NEGATIVE) 09/25/17 01:22 Urine Bilirubin Negative (NEGATIVE) 09/25/17 01:22 Ur Leukocyte Esterase Negative (NEGATIVE) 09/25/17 01:22 Urine WBC (Auto) 1 09/25/17 01:22 Urine RBC (Auto) 2 09/25/17 01:22 Ur Epithelial Cells Rare /HPF (FEW) 09/25/17 01:22 Urine Mucus Rare 09/25/17 01:22 ECG normal sinus rhythm vent rate 91, QTC 400 poor baseline in several leads, difficult to interpret T wave flattening lead2, V5, TWI lead 1, aVL Radiology Reports Ct head THIS IS A PRELIMINARY REPORT FROM [employer] [employer] IMPRESSION: 2.9 cm suprasellar mass may indicate neoplasm or aneurysm and should be followed up with enhanced MRI/MRA or enhanced CT/CTA. Diffuse sinusitis. THIS DOCUMENT HAS BEEN ELECTRONICALLY SIGNED London Garzon MD 09/25/2017 00:21 EST Chest xray, single view THIS IS A PRELIMINARY REPORT FROM [facility] [employer] IMPRESSION: Possible left lower lobe pneumonia with small effusion. THIS DOCUMENT HAS BEEN ELECTRONICALLY SIGNED London Garzon MD 09/25/2017 01:01 EST ASSESSMENT/PLAN: 67yF with PMH HTN, DM, Seizure disorder, hypothyroid, pituitary tumor s/p resection presented to the ED via EMS with AMS and seizure activity. She was found to be febrile upon arrival as well. Influenza A with pneumonia - unclear when symptoms started, will start tamiflu. (renal dose 30mg BID, CrCl 38 based on ideal body weight) DC tamiflu if sx started >48h ago - zosyn 4.5g ordered in ED, vanco 1g ordered - recommend ID consult, defer to PCP in am - NS 1L bolus ordered in ED, when complete, will give 75cc/hr Elevated troponin - likely demand ischemia - repeat ECG in am - trend troponin - recommend cardiology consult, defer to PCP in am seizure - pt unsure of keppra dose at home. Will start at 250 BID, Primary care team to confirm in am ABIMAEL - slight bump in creatinine from 1.0 to 1.2, will cont to monitor, if continues to decline, renal consult - IVF 75cc/hr Pituitary tumor - unclear what resection (total vs partial) done in June, CT findings may be old. - Primary care team to f/u in am. pt cannot remember name of neurologist, but believes surgery was done at [facility]. HTN - cont home medications DM - unclear what dose of insulin pt taking, pt unsure - will hold metformin - BGM AC/HS with novolog sliding scale. DVT PPX - heparin 5000u TID FEN - NS @ 75cc/hr - BMP in am - diabetic/low sodium diet Dispo: pt currently requires ICU level of care for intensive monitoring at this time. Visit type - Emergency Visit Emergency Visit: Yes ED Registration Date: 09/24/17 Care time: The patient presented to the Emergency Department on the above date and was hospitalized for further evaluation of their emergent condition. - New Patient This patient is new to me today: Yes Date on this admission: 09/25/17 - Critical Care Critical Care patient: Yes Total Critical Care Time (in minutes): 45 Critical Care Statement: The care of this patient involved high complexity decision making to prevent further life threatening deterioration of the patient 's condition and/or to evaluate & treat vital organ system(s) failure or risk of failure.
[2017-09-25] MEDS: OSELTAMIVIR PHOSPHATE 30 MG CAPSULE PO SCH ×2 (04:37→09:31)
[2017-09-25] MEDS: SODIUM CHLORIDE 1,000 ML IV SCH (04:38)
[2017-09-25] MEDS ORDERED: PIPERACILLIN/TAZOB 4.5 GM 4.5 GM in DEXTROSE 5%-WATER - 100 ML IVPB ONE (05:00)
--- NOTE | 2017-09-25 05:10 | CONSULT ---
Consult Consult Specialty:: PULM/CCM Referred by:: Reason for Consultation:: AMS - History of Present Illness Chief Complaint: AMS History of Present Illness: Ms. Montiel is a 67 y/o woman w/ HTN, DM, Sz disorder, hypothyroid, & a pituitary tumor (s/p resection 06/2017), BIBA O/N for AMS. (Of note, EMS adm IV Versed X 5mg enroute for reported Sz activity). In ED, pt remark for Fever > 103 , lethargy/delerium, a troponin leak --> 0.13, Flu +, LLL opacity, & a NCHCT c/ f progression of Brain CA (2.9 cm suprasellar mass c/f neoplasm). Of note, pt endorses that she did NOT secure her flu or PNA vaccine this season. Pt adm to the ICU for AMS. - History Source History Provided By: Patient, Medical Record Limitations to Obtaining History: Poor Historian - Past Medical History [employer]PER[employer]: Yes: Other (Brain Surgery (s/p ptuitary tumor resection 06/2017).) Cardio/Vascular: Yes: HTN Gastrointestinal: Yes: GERD Hepatobiliary: No: Cirrhosis Renal/: No: Renal Failure ...: No Heme/Onc: Yes: Cancer Infectious Disease: No: AIDS Psych: No: Addictions, Anxiety Endocrine: Yes: Diabetes Mellitus - Past Surgical History Additional Surgical History: (s/p pituitary resection 06/2017) - Alcohol/Substance Use Hx Alcohol Use: No - Smoking History Smoking history: Unknown if ever smoked Have you smoked in the past 12 months: No - Social History History of Recent Travel: No Home Medications - Allergies Allergies/Adverse Reactions: Allergies Allergy/AdvReac Type Severity Reaction Status Date / Time No Known Allergies Allergy Verified 09/24/17 22:46 - Home Medications Home Medications: Ambulatory Orders Amlodipine Besylate 5 mg PO DAILY 09/05/17 Cholecalciferol (Vitamin D3) [Vitamin D3] 2,000 unit PO DAILY 09/05/17 Levothyroxine Sodium [Levo-T] 75 mcg PO DAILY 09/05/17 Metformin HCl 500 mg PO DAILY #30 tablet 09/05/17 Metoprolol Tartrate 50 mg PO BID 09/05/17 Pantoprazole Sodium 40 mg PO DAILY 09/05/17 Family Disease History - Family Disease History Family History: Unable to Obtain (AMS) Review of Systems Unable to obtain ROS, reason: AMS Physical Exam Vital Signs: Vital Signs Temperature 99.8 F H 09/25/17 02:25 Pulse Rate 90 09/25/17 03:24 Respiratory Rate 35 H 09/25/17 03:24 Blood Pressure 103/68 09/25/17 03:24 O2 Sat by Pulse Oximetry (%) 98 09/25/17 02:25 Constitutional: Yes: Well Nourished, No Distress, Calm Eyes: Yes: WNL, Conjunctiva Clear, EOM Intact, Other (DRY MMM) HENT: Yes: WNL, Atraumatic, Normocephalic Neck: Yes: WNL, Supple, Trachea Midline Cardiovascular: Yes: WNL, Regular Rate and Rhythm Respiratory: Yes: WNL, Rhonchi Gastrointestinal: Yes: WNL, Normal Bowel Sounds, Soft, Abdomen, Obese ...Rectal Exam: Yes: Deferred Renal/: Yes: WNL Breast(s): Yes: WNL Musculoskeletal: Yes: WNL Extremities: Yes: WNL Edema: No Peripheral Pulses WNL: Yes Integumentary: Yes: Other (Dry, ASHY.) Neurological: Yes: Lethargy ...Motor Strength: WNL Psychiatric: Yes: WNL, Oriented Labs: CBC, BMP 09/24/17 23:55 09/24/17 23:55 Imaging - Results Chest X-ray: Image Reviewed (09/25: LLL PNA (My Read).) Cat Scan: Report Reviewed ([facility]: The ventricular system is midline and nondilated. The sulcal pattern is normal for the patient's age. Mild small vessel ischemic changes are noted. There is a 2.9 x 2.9 cm suprasellar mass with minimal calcification. Neoplasm and aneurysm are both considered. There is no bleed, extra-axial fluid collection or mass effect. No skull fracture or skull lesion is identified. Diffuse sinus opacification consistent with sinusitis. The bilateral mastoid air cells are clear. IMPRESSION: 2.9 cm suprasellar mass may indicate neoplasm or aneurysm and should be followed up with enhanced MRI/MRA or enhanced CT/CTA. Diffuse sinusitis.) MRI: Report Reviewed (MRI BRAIN 06/23: Chronic microvascular ischemic changes. No acute infarct or intracranial hemorrhage are identified. Large intrasellar and suprasellar lobulated mass with enhancement extending into the cavernous carotid sinuses, left more than right with enlargement of the sella. Its superior margin is extending superiorly/posteriorly effacing and displacing the optic chiasm superiorly with significant mass effect as well as splaying of the posterior aspect of the optic nerves prior to the chiasm. Its inferior margin appears to be extending into the sphenoid sinus likely due to chronic mass effect and remodeling of bone.) EKG: Image Reviewed (12-LEAD 09/24: RSR in the 90's w/o ectopy. L atrial enlargement, flipped T's in Lead I & AVL, as well as flattened T-waves in II, V5 , V6, QTc = 400ms, NSTEMI (My Read).) Problem List - Problems (1) Altered mental status Code(s): R41.82 - ALTERED MENTAL STATUS, UNSPECIFIED (2) Fever Code(s): R50.9 - FEVER, UNSPECIFIED (3) Influenza A Code(s): J10.1 - FLU DUE TO OTH IDENT INFLUENZA VIRUS W OTH RESP MANIFEST (4) Pneumonia Code(s): J18.9 - PNEUMONIA, UNSPECIFIED ORGANISM (5) Seizure Code(s): R56.9 - UNSPECIFIED CONVULSIONS Assessment/Plan ASSESS: This is a 67 y/o woman w/ HTN, DM, seizure disorder, hypothyroid, & pituitary CA who presents now w/ Flu, fever, dehydration, delerium, Post Ictal, dosed w/ versed, & NSTEMI +/- CAP +/- progression of Brain CA (2.9 cm suprasellar mass c/f neoplasm). PLAN: -Supp FiO2 prn for an SpO2 > 92% -NEBS -Sz precautions -Elva -Cover for CAP -Tylenol for fever -Rehydrate -Strict I's & O's -Trend BUN/Cr -Replete e-lytes prn -Could Consider LP, however, pt has many reasons to be lethargic/delerious -Check TFTs -Cont home dose Synth -NEURO -FSs -Insulin prn -Hold home anti-HTN meds for now (Pt requires major re-hydration) -Trend Troponins -Repeat EKG -TTE -CARDS -SQH -PPI (on pantoprazole @ home) -SCDs Thank you for this interesting consult NOA, [facility] ICU PULM/CCM [id number] Critical Care Time/MDM Note Total Critical Care Time: 39 Critical Care Statement: The care of this patient involved high complexity decision making to prevent further life threatening deterioration of the patient 's condition and/or to evaluate & treat vital organ system(s) failure or risk of failure.
[2017-09-25] MEDS ORDERED: LACTATED RINGERS SOLUTION 1,000 ML/1,000 ML INFUS.BAG IV STA (05:48)
[2017-09-25] MEDS: INSULIN SLIDING SCALE (NOVOLOG) 1 VIAL SQ SCH ×3 (06:28→17:38)
[2017-09-25] MEDS: HEPARIN NA (PORCINE) 5,000 UNITS/ML 1ML VIAL SQ SCH ×3 (06:28→22:07)
[2017-09-25] MEDS: LEVOTHYROXINE NA 75 MCG TABLET (FP) PO SCH (06:28)
[2017-09-25 07:19] LABS: BASO % 1.2 % (0-2.0); EOS % 1.4 % (0-4.5); HEMATOCRIT 38.9 % (32.4-45.2); HEMOGLOBIN 12.7 GM/dL (10.7-15.3); LYMPH % 23.3 % (8-40); MCH 28.9 pg (25.7-33.7); MCHC 32.6 g/dl (32.0-36.0); MEAN CELL VOLUME 88.6 fl (80-96); MONO % 15.8 % (3.8-10.2); NEUT % 58.3 % (42.8-82.8); PLATELET COUNT 218 K/MM3 (134-434); RBC 4.39 M/mm3 (3.60-5.2); RDW 14.9 % (11.6-15.6); WHITE BLOOD COUNT 4.8 K/mm3 (4.0-10.0)
[2017-09-25 07:30] LABS: CHLORIDE 107 mmol/L (98-107); POTASSIUM 3.4 mmol/L (3.5-5.1); SODIUM 141 mmol/L (136-145)
[2017-09-25 07:48] LABS: ANION GAP 11 (8-16); BLOOD UREA NITROGEN 7 mg/dL (7-18); CALCIUM 8.4 mg/dL (8.5-10.1); CO2 23 mmol/L (21-32); GLUCOSE,RANDOM 103 mg/dL (74-106); MAGNESIUM 1.1 mg/dL (1.8-2.4); PHOSPHOROUS 3.2 mg/dL (2.5-4.9)
[2017-09-25] MEDS ORDERED: MAGNESIUM SULF 50% (8.12 MEQ/2 ML-1 GM VIAL) IVPB ONE ×2 (08:05→08:44)
[2017-09-25] MEDS ORDERED: POTASSIUM CHLORIDE TABS 20 MEQ TABLET.ER (FP) PO ONE (08:07)
[2017-09-25] MEDS ORDERED: MAGNESIUM 1GM/D5W - 1 GM/100 ML IVPB IVPB ONE ×2 (08:15→09:15)
[2017-09-25] MEDS ORDERED: PT OWN MED DRAWER 7, Y5N ONE ×2 (09:28→21:38)
[2017-09-25] MEDS: METOPROLOL TARTRATE 50 MG TABLET (FP) PO SCH ×2 (09:33→22:08)
[2017-09-25] MEDS: MUPIROCIN 2% TOPICAL OINTMENT FOR DECOLONIZATION NS SCH ×2 (09:34→22:07)
[2017-09-25] MEDS ORDERED: CEFTRIAXONE 1 GM in DEXTROSE 5%-WATER - 50 ML IVPB SCH (10:00)
[2017-09-25] MEDS ORDERED: PANTOPRAZOLE 40 MG TABLET (FP) PO SCH (10:00)
[2017-09-25] MEDS ORDERED: CEFTRIAXONE 1 G/50 ML PREMIX 50 ML IVPB SCH (10:00)
[2017-09-25] MEDS ORDERED: amLODIPine BESYLATE 5 MG TABLET (FP) PO SCH (10:00)
[2017-09-25] MEDS ORDERED: levETIRAcetam 250 MG TABLET (FP) PO SCH (10:00)
[2017-09-25] MEDS ORDERED: AZITHROMYCIN IVPB 500 MG in DEXTROSE 5%-WATER - 250 ML IVPB SCH (10:00)
[2017-09-25] MEDS ORDERED: CHOLECALCIFEROL (VITAMIN D3) 1,000 UNIT TABLET (FP) PO SCH (10:00)
--- NOTE | 2017-09-25 10:30 | EKG ---
Test Reason : Blood Pressure : / mmHG Vent. Rate : 091 BPM Atrial Rate : 091 BPM P-R Int : 140 ms QRS Dur : 098 ms QT Int : 326 ms P-R-T Axes : 024 -01 131 degrees QTc Int : 400 ms BASELINE ARTIFACT NORMAL SINUS RHYTHM POSSIBLE LEFT ATRIAL ENLARGEMENT ABNORMAL ECG WHEN COMPARED WITH ECG OF 04-SEP-2017 20:59, VENT. RATE HAS INCREASED BY 30 BPM POOR DATA QUALITY, INTERPRETATION MAY BE ADVERSELY AFFECTED Confirmed by AUDELIA CARRILLO MD ([id number]) on 09/25/2017 10:29:46 AM Referred By: Confirmed By:AUDELIA CARRILLO MD
[2017-09-25] MEDS ORDERED: MAGNESIUM OXIDE 400 MG TABLET (FP) PO ONE (12:15)
--- NOTE | 2017-09-25 13:09 | PN ---
Progress Note, Physician Chief Complaint: Patient feels comfortable , more alert still minimal confusion, denies any head ache - Current Medication List Current Medications: Active Medications Acetaminophen (Tylenol -) 650 mg PO Q6H PRN PRN Reason: FEVER Amlodipine Besylate (Norvasc -) 5 mg PO DAILY [facility] Last Admin: 09/25/17 09:33 Dose: 5 mg Chlorhexidine Gluconate (Hibiclens For Decolonization -) 1 applic TP HS [facility] Cholecalciferol (Vitamin D3 -) 2,000 unit PO DAILY [facility] Last Admin: 09/25/17 09:33 Dose: 2,000 unit Heparin Sodium (Porcine) (Heparin -) 5,000 unit SQ TID [facility] Last Admin: 09/25/17 06:28 Dose: 5,000 unit Sodium Chloride (Normal Saline -) 1,000 mls @ 75 mls/hr IV ASDIR [facility] Last Admin: 09/25/17 04:38 Dose: 75 mls/hr Azithromycin 500 mg/ Dextrose 250 mls @ 250 mls/hr IVPB DAILY [facility] Last Admin: 09/25/17 09:32 Dose: 250 mls/hr CEFTRIAXONE 1 G/50 ML PREMIX (Ceftriaxone 1 Gm-D5w Bag) 50 mls @ 100 mls/hr IVPB DAILY [facility] Last Admin: 09/25/17 09:33 Dose: 100 mls/hr Insulin Aspart (Novolog Vial Sliding Scale -) 1 vial SQ TIDAC [facility] PRN Reason: Protocol Last Admin: 09/25/17 12:58 Dose: Not Given Insulin Aspart (Novolog Vial Sliding Scale -) 1 vial SQ [facility] PRN Reason: Protocol Levetiracetam (Keppra -) 250 mg PO BID [facility] Last Admin: 09/25/17 09:31 Dose: 250 mg Levothyroxine Sodium (Synthroid -) 75 mcg PO DAILY@0700 [facility] Last Admin: 09/25/17 06:28 Dose: 75 mcg Metoprolol Tartrate (Lopressor -) 50 mg PO BID [facility] Last Admin: 09/25/17 09:33 Dose: 50 mg Mupirocin (Bactroban Ointment (For Decolonization) -) 1 applic NS BID [facility] Stop: 09/30/17 09:59 Last Admin: 09/25/17 09:34 Dose: 1 applic Oseltamivir Phosphate (Tamiflu -) 30 mg PO BID [facility] Stop: 09/30/17 03:44 Last Admin: 09/25/17 09:31 Dose: 30 mg Pantoprazole Sodium (Protonix -) 40 mg PO DAILY [facility] Last Admin: 09/25/17 09:33 Dose: 40 mg - Objective Vital Signs: Vital Signs Temperature 99.1 F 09/25/17 06:59 Pulse Rate 64 09/25/17 09:00 Respiratory Rate 22 09/25/17 09:00 Blood Pressure 148/73 09/25/17 09:00 O2 Sat by Pulse Oximetry (%) 98 09/25/17 09:00 Middle aged F not in distress HEENT: Mm moist anemia, PERRLA, EOMI NECK; No JVD No Bruit CHEST: CTA B/L CVS: S1S2 R ABD: No distention non tender Bs + 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 but lethargic and confused ortherwise non focal Labs: CBC, BMP 09/25/17 05:20 09/25/17 05:20 INR, PTT INR 1.16 (0.82-1.09) H 09/24/17 23:55 Problem List - Problems (1) Altered mental status Assessment/Plan: Most likely brakthrough seizures cont keppra f/u Neurology consult input Code(s): R41.82 - ALTERED MENTAL STATUS, UNSPECIFIED (2) Influenza A Assessment/Plan: On tamiflu Code(s): J10.1 - FLU DUE TO OTH IDENT INFLUENZA VIRUS W OTH RESP MANIFEST (3) Pneumonia Assessment/Plan: CABP on Ceftraixone Code(s): J18.9 - PNEUMONIA, UNSPECIFIED ORGANISM (4) Seizure Assessment/Plan: Known case of seizures admitted with winessed seizure by EMs responded to Versed Code(s): R56.9 - UNSPECIFIED CONVULSIONS (5) Pituitary adenoma Assessment/Plan: S/P surgery in 06/27 F/U Neurology recommondations Code(s): D35.2 - BENIGN NEOPLASM OF PITUITARY GLAND (6) Elevated troponin I level Assessment/Plan: Most likely Demand ischemia F/U ECHO serial trop I, Cont ASA F/U HbA!c Lipid panel and TSH no acute St T chnages no c/o chest pain Code(s): R74.8 - ABNORMAL LEVELS OF OTHER SERUM ENZYMES (7) Dehydration Assessment/Plan: Cont IV hydration Code(s): E86.0 - DEHYDRATION (8) T2DM (type 2 diabetes mellitus) Assessment/Plan: Cont Correction dose insulin Code(s): E11.9 - TYPE 2 DIABETES MELLITUS WITHOUT COMPLICATIONS
--- NOTE | 2017-09-25 13:17 | PN ---
Physical Exam: SUBJECTIVE: Patient seen and examined The patient is a 67 year old female with a history of HTN, DM, HLD, pituitary tumor s/p resection in 06/27 who presented for lethargy and AMS. Per EMS the patient had a seizure or seizure like activity en route to the ED and was given 5mg of midazolam at the time. She currently reports no complaints and states that her surgery was done at [facility] by a Dr. Blake. She states that she has never had seizures in the past and has never been on medication for seizures. She reports that she feels otherwise well. OBJECTIVE: Vital Signs Period Temp Pulse Resp BP Sys/Luevano Pulse Ox Last 24 Hr 99.1 F-103.9 F 64-92 16-35 103-148/63-92 93-98 GENERAL: The patient is awake, alert, and fully oriented, in no acute distress. HEAD: Normal with no signs of trauma. EYES: sclera anicteric, conjunctiva clear. No ptosis. ENT: oropharynx clear without exudates, moist mucous membranes. NECK: Trachea midline, full range of motion, supple. LUNGS: Breath sounds equal, clear to auscultation bilaterally, no wheezes, no crackles, no accessory muscle use. HEART: Regular rate and rhythm, S1, S2 without murmur, rub or gallop. ABDOMEN: Soft, nontender, nondistended, normoactive bowel sounds, no guarding, no rebound, no hepatosplenomegaly, no masses. EXTREMITIES: 2+ pulses, warm, well-perfused, no edema. NEUROLOGICAL: Normal speech, gait not observed. PSYCH: Normal mood, normal affect. SKIN: Warm, dry, normal turgor, no rashes or lesions noted Laboratory Results - last 24 hr 09/24/17 09/24/17 09/24/17 23:55 23:55 23:55 WBC 7.0 RBC 4.68 Hgb 13.9 Hct 41.5 MCV 88.7 MCH 29.7 MCHC 33.4 RDW 14.9 Plt Count 245 D MPV 9.7 Neutrophils % 62.6 Lymphocytes % 21.4 D Monocytes % 13.3 H Eosinophils % 1.4 Basophils % 1.3 PT with INR 13.10 H INR 1.16 H PTT (Actin FS) VBG pH POC VBG pCO2 POC VBG pO2 Mixed VBG HCO3 Sodium 140 Potassium 3.5 Chloride 104 Carbon Dioxide 27 Anion Gap 9 BUN 6 L Creatinine 1.2 H Creat Clearance w eGFR 45.09 POC Glucometer Random Glucose 137 H Lactic Acid Calcium 8.9 Phosphorus Magnesium Total Bilirubin 0.9 D AST 62 H D ALT 59 D Alkaline Phosphatase 69 Creatine Kinase 93 Creatine Kinase Index CK-MB (CK-2) Troponin I 0.13 H Total Protein 7.2 Albumin 3.7 Urine Color Urine Appearance Urine pH Ur Specific [place] Urine Protein Urine Glucose (UA) Urine Ketones Urine Blood Urine Nitrite Urine Bilirubin Urine Urobilinogen Ur Leukocyte Esterase Urine WBC (Auto) Urine RBC (Auto) Ur Epithelial Cells Urine Mucus 09/24/17 09/25/17 09/25/17 23:55 00:30 00:30 WBC RBC Hgb Hct MCV MCH MCHC RDW Plt Count MPV Neutrophils % Lymphocytes % Monocytes % Eosinophils % Basophils % PT with INR INR PTT (Actin FS) 32.8 VBG pH 7.36 POC VBG pCO2 44.3 POC VBG pO2 35.2 Mixed VBG HCO3 24.3 Sodium Potassium Chloride Carbon Dioxide Anion Gap BUN Creatinine Creat Clearance w eGFR POC Glucometer Random Glucose Lactic Acid 1.5 Calcium Phosphorus Magnesium Total Bilirubin AST ALT Alkaline Phosphatase Creatine Kinase Creatine Kinase Index CK-MB (CK-2) Troponin I Total Protein Albumin Urine Color Urine Appearance Urine pH Ur Specific [place] Urine Protein Urine Glucose (UA) Urine Ketones Urine Blood Urine Nitrite Urine Bilirubin Urine Urobilinogen Ur Leukocyte Esterase Urine WBC (Auto) Urine RBC (Auto) Ur Epithelial Cells Urine Mucus 09/25/17 09/25/17 09/25/17 01:22 05:20 05:20 WBC 4.8 D RBC 4.39 Hgb 12.7 Hct 38.9 MCV 88.6 MCH 28.9 MCHC 32.6 RDW 14.9 Plt Count 218 MPV 10.0 Neutrophils % 58.3 Lymphocytes % 23.3 Monocytes % 15.8 H Eosinophils % 1.4 Basophils % 1.2 PT with INR INR PTT (Actin FS) VBG pH POC VBG pCO2 POC VBG pO2 Mixed VBG HCO3 Sodium 141 Potassium 3.4 L Chloride 107 Carbon Dioxide 23 Anion Gap 11 BUN 7 Creatinine 1.0 Creat Clearance w eGFR POC Glucometer Random Glucose 103 Lactic Acid Calcium 8.4 L Phosphorus 3.2 Magnesium 1.1 L D Total Bilirubin AST ALT Alkaline Phosphatase Creatine Kinase 215 H Creatine Kinase Index 0.4 CK-MB (CK-2) < 1.000 Troponin I 0.13 H Total Protein Albumin Urine Color Yellow Urine Appearance Clear Urine pH 5.0 Ur Specific [place] 1.017 Urine Protein Negative Urine Glucose (UA) Negative Urine Ketones Negative Urine Blood 1+ H Urine Nitrite Negative Urine Bilirubin Negative Urine Urobilinogen Negative Ur Leukocyte Esterase Negative Urine WBC (Auto) 1 Urine RBC (Auto) 2 Ur Epithelial Cells Rare Urine Mucus Rare 09/25/17 06:23 WBC RBC Hgb Hct MCV MCH MCHC RDW Plt Count MPV Neutrophils % Lymphocytes % Monocytes % Eosinophils % Basophils % PT with INR INR PTT (Actin FS) VBG pH POC VBG pCO2 POC VBG pO2 Mixed VBG HCO3 Sodium Potassium Chloride Carbon Dioxide Anion Gap BUN Creatinine Creat Clearance w eGFR POC Glucometer [id number] Random Glucose Lactic Acid Calcium Phosphorus Magnesium Total Bilirubin AST ALT Alkaline Phosphatase Creatine Kinase Creatine Kinase Index CK-MB (CK-2) Troponin I Total Protein Albumin Urine Color Urine Appearance Urine pH Ur Specific [place] Urine Protein Urine Glucose (UA) Urine Ketones Urine Blood Urine Nitrite Urine Bilirubin Urine Urobilinogen Ur Leukocyte Esterase Urine WBC (Auto) Urine RBC (Auto) Ur Epithelial Cells Urine Mucus Active Medications Generic Name Dose Route Start Last Admin Trade Name Freq PRN Reason Stop Dose Admin Acetaminophen 650 mg 09/25/17 03:24 Tylenol - PO Q6H PRN FEVER Amlodipine Besylate 5 mg 09/25/17 10:00 09/25/17 09:33 Norvasc - PO 5 mg DAILY [facility] Administration Chlorhexidine Gluconate 1 applic 09/25/17 22:00 Hibiclens For Decolonization - TP HS [facility] Cholecalciferol 2,000 unit 09/25/17 10:00 09/25/17 09:33 Vitamin D3 - PO 2,000 unit DAILY [facility] Administration Heparin Sodium (Porcine) 5,000 unit 09/25/17 06:00 09/25/17 06:28 Heparin - SQ 5,000 unit TID [facility] Administration Sodium Chloride 1,000 mls @ 75 mls/hr 09/25/17 04:15 09/25/17 04:38 Normal Saline - IV 75 mls/hr ASDIR [facility] Administration Azithromycin 500 mg/ Dextrose 250 mls @ 250 mls/hr 09/25/17 10:00 09/25/17 09 :32 IVPB 250 mls/hr DAILY [facility] Administration CEFTRIAXONE 1 G/50 ML PREMIX 50 mls @ 100 mls/hr 09/25/17 10:00 09/25/17 09: 33 Ceftriaxone 1 Gm-D5w Bag IVPB 100 mls/hr DAILY [facility] Administration Insulin Aspart 1 vial 09/25/17 07:00 09/25/17 12:58 Novolog Vial Sliding Scale - SQ Not Given TIDAC [facility] Protocol Insulin Aspart 1 vial 09/25/17 22:00 Novolog Vial Sliding Scale - SQ HS [facility] Protocol Levetiracetam 250 mg 09/25/17 10:00 09/25/17 09:31 Keppra - PO 250 mg BID [facility] Administration Levothyroxine Sodium 75 mcg 09/25/17 07:00 09/25/17 06:28 Synthroid - PO 75 mcg DAILY@0700 [facility] Administration Metoprolol Tartrate 50 mg 09/25/17 10:00 09/25/17 09:33 Lopressor - PO 50 mg BID [facility] Administration Mupirocin 1 applic 09/25/17 10:00 09/25/17 09:34 Bactroban Ointment (For Decolonization) - NS 09/30/17 09:59 1 applic BID [facility] Administration Oseltamivir Phosphate 30 mg 09/25/17 03:45 09/25/17 09:31 Tamiflu - PO 09/30/17 03:44 30 mg BID [facility] Administration Pantoprazole Sodium 40 mg 09/25/17 10:00 09/25/17 09:33 Protonix - PO 40 mg DAILY [facility] Administration ASSESSMENT/PLAN: The patient is a 67 year old female with a history of HTN, DM, HLD, pituitary tumor s/p resection in 06/27 who presented for lethargy and AMS treated with 5mg of midazolam for seizure like activity en rout to the ED found to be influenza A positive with a concern for a pneumonia on chest plain film. NEURO #Seizure -Continue keppra 250mg BID -No seizure activity since presentation CV #HTN -Continue home medications -Continue to monitor vitals RESP Improving infiltrate on plain film today. Patient denies any symptoms currently. -Continue treatment with Tamiflu for influenza. -Continue treatment with azithromycin and ceftriaxone for possible pneumonia. GI No issues currently. Heme No Issues currently. Renal -Good GFR. -Will continue to monitor. MSK No issues currently FEN/GI -Replete electrolytes PRN, will monitor PPX -Continue protonix 40mg daily. -Continue SCDs DISPO: Stable for med/surg transfer. Visit type - Emergency Visit Emergency Visit: No - New Patient This patient is new to me today: Yes Date on this admission: 09/25/17 - Critical Care Critical Care patient: No
[2017-09-25 13:38] LABS: CHOLESTEROL 181 mg/dL (50-200); HDL CHOLESTEROL 43 mg/dL (40-60); LDL CHOLESTEROL (ONLY SJRH) 128 mg/dL (5-100); TRIGLYCERIDES 135 mg/dL (35-160)
--- NOTE | 2017-09-25 14:39 | CON.NEURO ---
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 CONTROLLER: Yes: Other (Brain Surgery (s/p ptuitary tumor resection 06/2017).) Cardio/Vascular: Yes: HTN Gastrointestinal: Yes: GERD Hepatobiliary: No: Cirrhosis Renal/: No: Renal Failure ...: No Infectious Disease: No: AIDS Psych: No: Addictions, Anxiety Endocrine: Yes: Diabetes Mellitus - Past Surgical History Additional Surgical History: (s/p pituitary resection 06/2017) - Alcohol/Substance Use Hx Alcohol Use: No - Smoking History Smoking history: Unknown if ever smoked Have you smoked in the past 12 months: No - Social History History of Recent Travel: No Home Medications - Allergies Allergies/Adverse Reactions: Allergies Allergy/AdvReac Type Severity Reaction Status Date / Time No Known Allergies Allergy Verified 09/24/17 22:46 - Home Medications Home Medications: Ambulatory Orders Amlodipine Besylate 5 mg PO DAILY 09/05/17 Cholecalciferol (Vitamin D3) [Vitamin D3] 2,000 unit PO DAILY 09/05/17 Levothyroxine Sodium [Levo-T] 75 mcg PO DAILY 09/05/17 Metformin HCl 500 mg PO DAILY #30 tablet 09/05/17 Metoprolol Tartrate 50 mg PO BID 09/05/17 Pantoprazole Sodium 40 mg PO DAILY 09/05/17 Physical Exam-Neuro Vital Signs: Vital Signs Temperature 99.1 F 09/25/17 06:59 Pulse Rate 64 09/25/17 09:00 Respiratory Rate 22 09/25/17 09:00 Blood Pressure 148/73 09/25/17 09:00 O2 Sat by Pulse Oximetry (%) 98 09/25/17 09:00 Labs: CBC, BMP 09/25/17 05:20 09/25/17 05:20 INR, PTT INR 1.16 (0.82-1.09) H 09/24/17 23:55 Assessment/Plan cc Brought to hospital for [facility] and on way to hospital she had seizrues HPI 67 year old female hsitory of Pituitary tumor s/p resection in june [address] [facility], [place]. Patient is now back to normal. Initially suspected to have pneumonia, She is being treated with azithromycin and Tamiflu. Patient had ct scan of brain showed there is enlargement of Pituitary area. Patient also have history of htn, dm, seizure disorder, hypothyrodism and she was on hydrocortisone PMH as above. FH,ROS SH reviewed in chart HOME MEDICATIONS: 3 Medication Instructions Recorded Amlodipine Besylate 5 mg PO DAILY 09/05/17 Cholecalciferol (Vitamin D3) 2,000 unit PO DAILY 09/05/17 [Vitamin D3] Levothyroxine Sodium [Levo-T] 75 mcg PO DAILY 09/05/17 Metformin HCl 500 mg PO DAILY #30 tablet 09/05/17 Metoprolol Tartrate 50 mg PO BID 09/05/17 Pantoprazole Sodium 40 mg PO DAILY 09/05/17 humalog as per EMS lantus as per EMS keppra as per EMS Neurological Examination Alert oriented x 3, speech is normal able to follow command EOMI , vf is normal by confrontation and pupils is reactive No facial asymmetry, moving all extremity and sensation is normal ct scan findings reviewed ( prior to current ct scan , mri of brain was done 2012), Assessment/PLAN: 1.Breakthrough seizures , she was on keppra 250 mg po bid, it is quite a low dose, suggest to increase to 750 mg po bid -- Increase keppra 750 mg po bid -- EEG 2. Worsening of Pituitary tumor? less likley as she recently had surgery done and - suggest to do mri of brain with contrast - our Neurosurgery consult -may need further input from Flash Designer and Optho , and Patient may be better off following at [facility], [place] , if nothing urgent identified. Thank you so much Rajiv Mendoza MD
--- NOTE | 2017-09-25 15:07 | PN ---
Progress Note (short form) - Note Progress Note: ID Consult dictated Acute influenza A S/p seizure Possible aspiration pneumonia S/P resection, pituitary tumor Obtain c/s Tamiflu/ Droplet precautions Empiric ceftriaxone for possible aspiration pneumonia
--- NOTE | 2017-09-25 17:32 | CONS ---
INFECTIOUS DISEASE CONSULTATION DATE OF CONSULTATION: 09/25/2017 REASON FOR CONSULTATION: A 67-year-old female evaluated for acute influenza and possible aspiration pneumonia. HISTORY OF PRESENT ILLNESS: The patient was brought to the hospital on September 24, 2017, after a 1-day history of worsening lethargy, altered mentation, and fever. En route to the hospital, the patient had a seizure in the ambulance. She was evaluated in the emergency room where she was noted to have altered mental status. 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 Her course was complicated by fever to 103.9. A rapid influenza swab was performed and was positive for influenza A. At the present time, she is awake and alert in the intensive care unit. She has poor recall for recent events. She denies any pain. She denies any complaints of chest pain, shortness of breath, cough, or sputum production. Denies any recent febrile illness or shaking chills. She is unaware of being exposed to anyone with influenza. She reports receiving influenza vaccine this year. She denies chest pain, shortness of breath, cough, sputum production, or hemoptysis. Patient has a history of pituitary tumor which was resected in June 2017, history of diabetes mellitus, hypertension, hypothyroidism. ALLERGIES: No known allergies. MEDICATIONS: Norvasc, Keppra, Lantus, Humalog, metoprolol, Protonix, Percocet. SOCIAL HISTORY: She resides at home with family members. She is a non-smoker, nondrinker. Denies risk factors for HIV. Patient was hospitalized in late August for hypoglycemia. SYSTEMS REVIEW: Neurologic: Positive for pituitary tumor and now status post seizures. Cardiac: Negative chest pain or palpitations. Respiratory: As per HPI. Gastrointestinal: Negative vomiting or diarrhea. Genitourinary: Negative for urinary tract infection. LABORATORY DATA: White count 4.8, hematocrit 38.9, platelet count 218. BUN 7, creatinine 1.0. Urinalysis 1 white cell. Blood and urine cultures are pending. Chest x-ray: Possible left lower lobe infiltrate. PHYSICAL EXAMINATION: General: She is awake and alert, not acutely toxic appearing, in no acute distress. Her breathing is non-labored. Vital Signs: Temperature 99.1, T-max 103.9; blood pressure 116/63; pulse 79, regular; respirations 28 per minute. HEENT: Sclerae are anicteric. Heart: Sounds S1, S2. Lungs: Diminished breath sounds bilaterally. Abdomen: Obese, soft, nontender. Extremities: Edema 1+. IMPRESSION: 1. Acute influenza A. 2. Status post seizures. 3. Possible aspiration pneumonia secondary to seizure. 4. Status post resection of pituitary tumor. 5. Status post altered mental status, likely toxic metabolic encephalopathy. RECOMMENDATIONS: Continue droplet precautions, Tamiflu 75 mg p.o. b.i.d. for 5 days, await culture results, empiric antibiotic coverage with ceftriaxone for possible aspiration pneumonia, aspiration precautions. Will follow. Thank you for the kind referral. COLEMAN SOTO M.D. [id number]
[2017-09-25] MEDS ORDERED: INSULIN SLIDING SCALE (NOVOLOG) 1 VIAL SQ SCH (22:00)
[2017-09-25] MEDS ORDERED: CHLORHEXIDINE GLUCONATE 4% CLEANSER FOR DECOLONIZATION TP SCH (22:00)
[2017-09-25] MEDS: levETIRAcetam 250 MG TABLET (FP) PO SCH (22:09)
[2017-09-25] MEDS: OSELTAMIVIR PHOSPHATE 75 MG CAPSULE PO SCH (22:09)
[2017-09-26] MEDS: HEPARIN NA (PORCINE) 5,000 UNITS/ML 1ML VIAL SQ SCH ×3 (06:13→21:10)
[2017-09-26] MEDS: INSULIN SLIDING SCALE (NOVOLOG) 1 VIAL SQ SCH ×4 (06:13→21:15)
[2017-09-26] MEDS: LEVOTHYROXINE NA 75 MCG TABLET (FP) PO SCH (06:18)
[2017-09-26 06:25] LABS: BASO % 2.6 % (0-2.0); EOS % 5.4 % (0-4.5); HEMATOCRIT 37.3 % (32.4-45.2); HEMOGLOBIN 12.4 GM/dL (10.7-15.3); LYMPH % 42.6 % (8-40); MCH 29.8 pg (25.7-33.7); MCHC 33.3 g/dl (32.0-36.0); MEAN CELL VOLUME 89.6 fl (80-96); MEAN PLT VOLUME 9.8 fl (7.5-11.1); MONO % 19.3 % (3.8-10.2); NEUT % 30.1 % (42.8-82.8); PLATELET COUNT 194 K/MM3 (134-434); RBC 4.17 M/mm3 (3.60-5.2); RDW 15.2 % (11.6-15.6); WHITE BLOOD COUNT 3.9 K/mm3 (4.0-10.0)
[2017-09-26] MEDS: SODIUM CHLORIDE 1,000 ML IV SCH ×2 (06:28→09:56)
[2017-09-26 06:59] LABS: ANION GAP 7 (8-16); BLOOD UREA NITROGEN 4 mg/dL (7-18); CALCIUM 8.3 mg/dL (8.5-10.1); CHLORIDE 109 mmol/L (98-107); CO2 27 mmol/L (21-32); GLUCOSE,RANDOM 100 mg/dL (74-106); POTASSIUM 3.9 mmol/L (3.5-5.1); SODIUM 143 mmol/L (136-145)
--- NOTE | 2017-09-26 07:02 | PN ---
Progress Note, Physician Chief Complaint: ID ICU follow up for this 67 year old female presents with altered mental status, seizures history of pituitary tumor and positive rapid test Influenza A. Currently alert in no distress and reports no complaints. Her HIV status unknown and when asked says I don"t need that. Denies OSB coph chills now No headaches Gets Tamiflu and Ceftriaxone - Current Medication List Current Medications: Active Medications Acetaminophen (Tylenol -) 650 mg PO Q6H PRN PRN Reason: FEVER Last Admin: 09/26/17 00:15 Dose: 650 mg Amlodipine Besylate (Norvasc -) 5 mg PO DAILY [facility] Last Admin: 09/25/17 09:33 Dose: 5 mg Chlorhexidine Gluconate (Hibiclens For Decolonization -) 1 applic TP HS [facility] Last Admin: 09/25/17 22:08 Dose: 1 applic Cholecalciferol (Vitamin D3 -) 2,000 unit PO DAILY [facility] Last Admin: 09/25/17 09:33 Dose: 2,000 unit Heparin Sodium (Porcine) (Heparin -) 5,000 unit SQ TID [facility] Last Admin: 09/26/17 06:13 Dose: 5,000 unit Sodium Chloride (Normal Saline -) 1,000 mls @ 75 mls/hr IV ASDIR [facility] Last Admin: 09/26/17 06:28 Dose: 75 mls/hr CEFTRIAXONE 1 G/50 ML PREMIX (Ceftriaxone 1 Gm-D5w Bag) 50 mls @ 100 mls/hr IVPB DAILY [facility] Last Admin: 09/25/17 09:33 Dose: 100 mls/hr Insulin Aspart (Novolog Vial Sliding Scale -) 1 vial SQ TIDAC [facility] PRN Reason: Protocol Last Admin: 09/26/17 06:13 Dose: Not Given Insulin Aspart (Novolog Vial Sliding Scale -) 1 vial SQ HS [facility] PRN Reason: Protocol Last Admin: 09/25/17 22:08 Dose: Not Given Levetiracetam (Keppra -) 750 mg PO BID [facility] Last Admin: 09/25/17 22:09 Dose: 750 mg Levothyroxine Sodium (Synthroid -) 75 mcg PO DAILY@0700 [facility] Last Admin: 09/26/17 06:18 Dose: 75 mcg Metoprolol Tartrate (Lopressor -) 50 mg PO BID [facility] Last Admin: 01/15/18 22:08 Dose: 50 mg Mupirocin (Bactroban Ointment (For Decolonization) -) 1 applic NS BID [facility] Stop: 09/30/17 09:59 Last Admin: 09/25/17 22:07 Dose: 1 applic Oseltamivir Phosphate (Tamiflu -) 75 mg PO BID [facility] Stop: 09/30/17 21:59 Last Admin: 09/25/17 22:09 Dose: 75 mg Pantoprazole Sodium (Protonix -) 40 mg PO DAILY [facility] Last Admin: 09/25/17 09:33 Dose: 40 mg - Objective Vital Signs: Vital Signs Temperature 100.3 F H 09/25/17 23:00 Pulse Rate 74 09/26/17 05:00 Respiratory Rate 21 09/26/17 05:00 Blood Pressure 110/90 09/26/17 05:00 O2 Sat by Pulse Oximetry (%) 95 09/25/17 21:00 Constitutional: Yes: Well Nourished, No Distress Eyes: Yes: WNL, Conjunctiva Clear HENT: Yes: WNL, Atraumatic Neck: Yes: WNL, Supple, Trachea Midline Cardiovascular: Yes: Regular Rate and Rhythm, S1, S2. No: Murmur Respiratory: Yes: WNL, Regular, CTA Bilaterally. No: Rales, Rhonchi Gastrointestinal: Yes: WNL, Normal Bowel Sounds, Soft. No: Splenomegaly, Tenderness, Tenderness, Rebound Extremities: No: Cold, Cool, Cyanosis Edema: No Labs: CBC, BMP 09/26/17 05:00 INR, PTT INR 1.16 (0.82-1.09) H 09/24/17 23:55 Problem List - Problems (1) Altered mental status Code(s): R41.82 - ALTERED MENTAL STATUS, UNSPECIFIED (2) Fever Code(s): R50.9 - FEVER, UNSPECIFIED (3) Influenza A Code(s): J10.1 - FLU DUE TO OTH IDENT INFLUENZA VIRUS W OTH RESP MANIFEST (4) Pituitary adenoma Code(s): D35.2 - BENIGN NEOPLASM OF PITUITARY GLAND (5) Seizure Code(s): R56.9 - UNSPECIFIED CONVULSIONS Assessment/Plan Microbiology 09/24/17 00:01 Nasopharyngeal Swab Influenza Types A,B Antigen ([facility]) - Final 09/24/17 00:01 Nasopharyngeal Swab - Final 09/25/17 00:38 Blood - Peripheral Venous Blood Culture - Preliminary NO GROWTH OBTAINED AFTER 24 HOURS, INCUBATION TO CONTINUE FOR 4 DAYS. 09/25/17 00:30 Blood - Peripheral Venous Blood Culture - Preliminary NO GROWTH OBTAINED AFTER 24 HOURS, INCUBATION TO CONTINUE FOR 4 DAYS. Laboratory Tests 09/24/17 09/25/17 09/25/17 23:55 01:22 05:20 WBC Hgb Plt Count Neutrophils % Lymphocytes % Monocytes % Eosinophils % Basophils % BUN 7 Creatinine 1.0 Calcium 8.4 L ALT 59 D Alkaline Phosphatase 69 Creatine Kinase 93 Troponin I 0.13 H Urine WBC (Auto) 1 Urine RBC (Auto) 2 09/26/17 05:00 WBC 3.9 L Hgb 12.4 Plt Count 194 Neutrophils % 30.1 L D Lymphocytes % 42.6 H D Monocytes % 19.3 H Eosinophils % 5.4 H D Basophils % 2.6 H BUN Creatinine Calcium ALT Alkaline Phosphatase Creatine Kinase Troponin I Urine WBC (Auto) Urine RBC (Auto) Assessment Fevers 104 secondary influenza A No evidence for airspace disease on chest ray Seizures Suprasellar mass Encephalopathy secondary Influenza Diabetes Plan Seems to be much better today alert oriented Can stop Ceftriaxone Contnue Oseltamavir Respiratory isolation in place ICU time spent 39 minutes Stephanie GARNICA
[2017-09-26 07:09] LABS: CREATININE 0.8 mg/dL (0.55-1.02)
[2017-09-26] MEDS ORDERED: MAGNESIUM SULF 50% (8.12 MEQ/2 ML-1 GM VIAL) IVPB ONE ×2 (07:25)
[2017-09-26] MEDS ORDERED: ACETAMINOPHEN 325 MG TABLET (FP) PO PRN (07:25)
--- NOTE | 2017-09-26 09:12 | PN ---
Physical Exam: SUBJECTIVE: Patient seen and examined The patient is a 67 year old female with a history of HTN, DM, HLD, pituitary tumor s/p resection in 06/27 who presented for lethargy and AMS treated with 5mg of midazolam for seizure like activity en rout to the ED found to be influenza A positive with a concern for a pneumonia on chest plain film. ID was consulted and recommended stopping ceftriaxone and continuing the Tamiflu. Neurology was consulted and recommended increasing the patient's keppra to 750mg BID for appropriate seizure management. Patient currently has no complaints this morning. No acute events overnight. OBJECTIVE: Vital Signs Period Temp Pulse Resp BP Sys/Luevano Pulse Ox Last 24 Hr 98.9 F-100.3 F 66-84 18-22 94-131/59-90 95 GENERAL: The patient is awake, alert, and oriented x2, in no acute distress. HEAD: Normal with no signs of trauma. EYES: sclera anicteric, conjunctiva clear. No ptosis. ENT: nares patent, oropharynx clear without exudates, moist mucous membranes. NECK: Trachea midline, full range of motion, supple. LUNGS: Breath sounds equal, clear to auscultation bilaterally, no wheezes, no crackles, no accessory muscle use. HEART: Regular rate and rhythm, S1, S2 without murmur, rub or gallop. ABDOMEN: Soft, nontender, nondistended, normoactive bowel sounds, no guarding, no rebound, no hepatosplenomegaly, no masses. EXTREMITIES: 2+ pulses, warm, well-perfused, no edema. NEUROLOGICAL: Normal speech, gait not observed. PSYCH: Normal mood, normal affect. SKIN: Warm, dry, normal turgor, no rashes or lesions noted Laboratory Results - last 24 hr 09/25/17 09/25/17 09/25/17 06:23 12:10 12:51 WBC RBC Hgb Hct MCV MCH MCHC RDW Plt Count MPV Neutrophils % Lymphocytes % Monocytes % Eosinophils % Basophils % Sodium Potassium Chloride Carbon Dioxide Anion Gap BUN Creatinine POC Glucometer [phone] Random Glucose Calcium Creatine Kinase 248 H Creatine Kinase Index 0.4 CK-MB (CK-2) < 1.000 Troponin I 0.13 H Triglycerides 135 Cholesterol 181 Total LDL Cholesterol 128 H HDL Cholesterol 43 TSH 09/25/17 09/26/17 09/26/17 17:35 05:00 05:00 WBC 3.9 L RBC 4.17 Hgb 12.4 Hct 37.3 MCV 89.6 MCH 29.8 MCHC 33.3 RDW 15.2 Plt Count 194 MPV 9.8 Neutrophils % 30.1 L D Lymphocytes % 42.6 H D Monocytes % 19.3 H Eosinophils % 5.4 H D Basophils % 2.6 H Sodium 143 Potassium 3.9 Chloride 109 H Carbon Dioxide 27 Anion Gap 7 L BUN 4 L Creatinine 0.8 POC Glucometer [phone] Random Glucose 100 Calcium 8.3 L Creatine Kinase Creatine Kinase Index CK-MB (CK-2) Troponin I Triglycerides Cholesterol Total LDL Cholesterol HDL Cholesterol TSH 0.02 L Active Medications Generic Name Dose Route Start Last Admin Trade Name Yordan PRN Reason Stop Dose Admin Acetaminophen 650 mg 09/26/17 07:25 Tylenol - PO Q6H PRN FEVER Amlodipine Besylate 5 mg 09/26/17 10:00 Norvasc - PO DAILY [facility] Chlorhexidine Gluconate 1 applic 09/26/17 22:00 Hibiclens For Decolonization - TP HS [facility] Cholecalciferol 2,000 unit 09/26/17 10:00 Vitamin D3 - PO DAILY [facility] Heparin Sodium (Porcine) 5,000 unit 09/26/17 14:00 Heparin - SQ TID [facility] Sodium Chloride 1,000 mls @ 75 mls/hr 09/26/17 07:25 Normal Saline - IV ASDIR [facility] Insulin Aspart 1 vial 09/26/17 11:00 Novolog Vial Sliding Scale - SQ TIDAC [facility] Protocol Insulin Aspart 1 vial 09/26/17 22:00 Novolog Vial Sliding Scale - SQ HS [facility] Protocol Levetiracetam 750 mg 09/25/17 22:00 09/25/17 22:09 Keppra - PO 750 mg BID [facility] Administration Levothyroxine Sodium 75 mcg 09/27/17 07:00 Synthroid - PO DAILY@0700 [facility] Magnesium Sulfate 1 gm 09/26/17 07:25 Magnesium Sulfate IVPB 09/26/17 07:26 ONCE ONE Magnesium Sulfate 1 gm 09/26/17 07:25 Magnesium Sulfate IVPB 09/26/17 07:26 ONCE ONE Metoprolol Tartrate 50 mg 09/26/17 10:00 Lopressor - PO BID [facility] Mupirocin 1 applic 09/26/17 10:00 Bactroban Ointment (For Decolonization) - NS 09/30/17 09:59 BID [facility] Oseltamivir Phosphate 75 mg 09/25/17 22:00 09/25/17 22:09 Tamiflu - PO 09/30/17 21:59 75 mg BID [facility] Administration Pantoprazole Sodium 40 mg 09/26/17 10:00 Protonix - PO DAILY [facility] ASSESSMENT/PLAN: The patient is a 67 year old female with a history of HTN, DM, HLD, pituitary tumor s/p resection in 06/27 who presented for lethargy and AMS treated with 5mg of midazolam for seizure like activity en rout to the ED found to be influenza A positive with a concern for a pneumonia on chest plain film. NEURO #Seizure -Continue keppra 750mg BID -No seizure activity since presentation -Patient to have MRI today for further evaluation of pituitary tumor. CV #HTN -Continue home medications -Continue to monitor vitals RESP Patient denies any symptoms currently. -Continue treatment with Tamiflu for influenza. -We will stop antibiotic treatment per ID recommendations. GI No issues currently. Heme No Issues currently. Renal -Good GFR and stable BUN/creatinine -Will d/c brennan -Will continue to monitor. MSK No issues currently FEN/GI -Replete electrolytes PRN, will monitor PPX -Continue protonix 40mg daily. -Continue SCDs DISPO: Stable for med/surg transfer. Visit type - Emergency Visit Emergency Visit: No - New Patient This patient is new to me today: No - Critical Care Critical Care patient: No
[2017-09-26 09:28] LABS: MAGNESIUM 1.9 mg/dL (1.8-2.4)
--- NOTE | 2017-09-26 09:35 | PN ---
Progress Note (short form) - Note Progress Note: Neurology History 67 year old female with a significant past medical history of pituitary tumor s/ p resection 06/2017 and DM who presented to the ED via EMS for altered mental status. EMS also reported seizure activity on the way to the hospital for which the patient received versed 5mg. The patient was on Keppra 250mg twice daily which is typically a subtheraputic dose, increased to 750mg twice daily. She was admitted to ICU for close monitoring. 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 Reportedly, she completed surgical intervention at [facility] in June 2017. Dr. Crowell covering over weekend, ordered MRI pituatary. Patient seen in ICU and currently awake and talking but very slow to respond to questions. Unclear what her baseline is. She was found to have positive Influenza A. Active Medications Acetaminophen (Tylenol -) 650 mg PO Q6H PRN PRN Reason: FEVER Amlodipine Besylate (Norvasc -) 5 mg PO DAILY [facility] Chlorhexidine Gluconate (Hibiclens For Decolonization -) 1 applic TP HS [facility] Cholecalciferol (Vitamin D3 -) 2,000 unit PO DAILY [facility] Heparin Sodium (Porcine) (Heparin -) 5,000 unit SQ TID [facility] Sodium Chloride (Normal Saline -) 1,000 mls @ 75 mls/hr [facility] Insulin Aspart (Novolog Vial Sliding Scale -) 1 vial SQ [facility]IDAC [facility] PRN Reason: Protocol Insulin Aspart (Novolog Vial Sliding Scale -) 1 vial SQ HS [facility] PRN Reason: Protocol Levetiracetam (Keppra -) 750 mg PO BID [facility] Last Admin: 09/25/17 22:09 Dose: 750 mg Levothyroxine Sodium (Synthroid -) 75 mcg PO DAILY@0700 [facility] Magnesium Sulfate (Magnesium Sulfate) 1 gm IVPB ONCE ONE Stop: 09/26/17 07:26 Magnesium Sulfate (Magnesium Sulfate) 1 gm IVPB ONCE ONE Stop: 09/26/17 07:26 Metoprolol Tartrate (Lopressor -) 50 mg PO BID [facility] Mupirocin (Bactroban Ointment (For Decolonization) -) 1 applic NS BID [facility] Stop: 09/30/17 09:59 Oseltamivir Phosphate (Tamiflu -) 75 mg PO BID [facility] Stop: 09/30/17 21:59 Last Admin: 09/25/17 22:09 Dose: 75 mg Pantoprazole Sodium (Protonix -) 40 mg PO DAILY [facility] Physical Exam-Neuro Vital Signs Temperature 100.3 F H 09/25/17 23:00 Pulse Rate 76 09/26/17 08:52 Respiratory Rate 22 09/26/17 08:52 Blood Pressure 112/74 09/26/17 08:52 O2 Sat by Pulse Oximetry (%) 95 09/25/17 21:00 Examination Alert oriented x 3, speech is normal able to follow command EOMI , vf is normal by confrontation and pupils is reactive No facial asymmetry, Moving all extremity, strenght grossly intact Sensory normal No abnormal movements CBCD WBC 3.9 K/mm3 (4.0-10.0) L 09/26/17 05:00 RBC 4.17 M/mm3 (3.60-5.2) 09/26/17 05:00 Hgb 12.4 GM/dL (10.7-15.3) 09/26/17 05:00 Hct 37.3 % (32.4-45.2) 09/26/17 05:00 MCV 89.6 fl (80-96) 09/26/17 05:00 MCHC 33.3 g/dl (32.0-36.0) 09/26/17 05:00 RDW 15.2 % (11.6-15.6) 09/26/17 05:00 Plt Count 194 K/MM3 (134-434) 09/26/17 05:00 MPV 9.8 fl (7.5-11.1) 09/26/17 05:00 CMP Sodium 143 mmol/L (136-145) 09/26/17 05:00 Potassium 3.9 mmol/L (3.5-5.1) 09/26/17 05:00 Chloride 109 mmol/L (98-107) H 09/26/17 05:00 Carbon Dioxide 27 mmol/L (21-32) 09/26/17 05:00 Anion Gap 7 (8-16) L 09/26/17 05:00 BUN 4 mg/dL (7-18) L 09/26/17 05:00 Creatinine 0.8 mg/dL (0.55-1.02) 09/26/17 05:00 Creat Clearance w eGFR 45.09 (>60) 09/24/17 23:55 Calcium 8.3 mg/dL (8.5-10.1) L 09/26/17 05:00 Total Bilirubin 0.9 mg/dL (0.2-1.0) D 09/24/17 23:55 AST 62 U/L (15-37) H D 09/24/17 23:55 ALT 59 U/L (12-78) D 09/24/17 23:55 Alkaline Phosphatase 69 U/L (45-117) 09/24/17 23:55 Total Protein 7.2 g/dl (6.4-8.2) 09/24/17 23:55 Albumin 3.7 g/dl (3.4-5.0) 09/24/17 23:55 CT head reviewed Plan 67 year old female with a significant past medical history of pituitary tumor s/ p resection 06/2017 and DM who presented to the ED via EMS for altered mental status. EMS also reported seizure activity on the way to the hospital for which the patient received versed 5mg. The patient was on Keppra 250mg twice daily which is typically a subtheraputic dose, increased to 750mg twice daily. She was admitted to ICU for close monitoring. 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 Follow up MRI pituatary Collaterals to determine if surgical intervention occured Depending on MRI, NSGY consult may be indicated Continue Keppra 750mg twice daily Positive Influenza A, ID following, continue Tamiflu (5 day course recommended) Seizure monitoring EEG ordered by Dr. Crowell Critical care time 35 mins
[2017-09-26] MEDS: levETIRAcetam 250 MG TABLET (FP) PO SCH ×2 (09:52→21:09)
[2017-09-26] MEDS: METOPROLOL TARTRATE 50 MG TABLET (FP) PO SCH ×2 (09:53→21:09)
[2017-09-26] MEDS: CHOLECALCIFEROL (VITAMIN D3) 1,000 UNIT TABLET (FP) PO SCH (09:53)
[2017-09-26] MEDS: amLODIPine BESYLATE 5 MG TABLET (FP) PO SCH (09:53)
[2017-09-26] MEDS: PANTOPRAZOLE 40 MG TABLET (FP) PO SCH (09:53)
[2017-09-26] MEDS ORDERED: MUPIROCIN 2% TOPICAL OINTMENT FOR DECOLONIZATION NS SCH (10:00)
--- NOTE | 2017-09-26 10:24 | PN ---
Progress Note, Physician Chief Complaint: Ms Montiel is without complaint this am. Denies cp, sob, n/v, or any other concerns. - Current Medication List Current Medications: Active Medications Acetaminophen (Tylenol -) 650 mg PO Q6H PRN PRN Reason: FEVER Amlodipine Besylate (Norvasc -) 5 mg PO DAILY [facility] Last Admin: 09/26/17 09:53 Dose: 5 mg Chlorhexidine Gluconate (Hibiclens For Decolonization -) 1 applic TP HS [facility] Cholecalciferol (Vitamin D3 -) 2,000 unit PO DAILY [facility] Last Admin: 09/26/17 09:53 Dose: 2,000 unit Heparin Sodium (Porcine) (Heparin -) 5,000 unit SQ TID [facility] Sodium Chloride (Normal Saline -) 1,000 mls @ 75 mls/hr IV ASDIR [facility] Last Admin: 09/26/17 09:56 Dose: 75 mls/hr Insulin Aspart (Novolog Vial Sliding Scale -) 1 vial SQ TIDAC [facility] PRN Reason: Protocol Insulin Aspart (Novolog Vial Sliding Scale -) 1 vial SQ [facility] PRN Reason: Protocol Levetiracetam (Keppra -) 750 mg PO BID [facility] Last Admin: 09/26/17 09:52 Dose: 750 mg Levothyroxine Sodium (Synthroid -) 75 mcg PO DAILY@0700 [facility] Magnesium Sulfate (Magnesium Sulfate) 1 gm IVPB ONCE ONE Stop: 09/26/17 07:26 Magnesium Sulfate (Magnesium Sulfate) 1 gm IVPB ONCE ONE Stop: 09/26/17 07:26 Metoprolol Tartrate (Lopressor -) 50 mg PO BID [facility] Last Admin: 09/26/17 09:53 Dose: 50 mg Mupirocin (Bactroban Ointment (For Decolonization) -) 1 applic NS BID [facility] Stop: 09/30/17 09:59 Last Admin: 09/26/17 09:52 Dose: 1 applic Oseltamivir Phosphate (Tamiflu -) 75 mg PO BID [facility] Stop: 09/30/17 21:59 Last Admin: 09/25/17 22:09 Dose: 75 mg Pantoprazole Sodium (Protonix -) 40 mg PO DAILY [facility] Last Admin: 09/26/17 09:53 Dose: 40 mg - Objective Vital Signs: Vital Signs Temperature 37.3 C 09/26/17 10:00 Pulse Rate 76 09/26/17 08:00 Respiratory Rate 22 09/26/17 10:00 Blood Pressure 146/73 09/26/17 10:00 O2 Sat by Pulse Oximetry (%) 95 09/25/17 21:00 Constitutional: Yes: Well Nourished, No Distress, Calm Cardiovascular: Yes: Regular Rate and Rhythm. No: Gallop, Murmur, Rub Respiratory: Yes: Regular, CTA Bilaterally. No: Rales, Rhonchi, Wheezes Gastrointestinal: Yes: Normal Bowel Sounds, Soft. No: Distention, Tenderness Extremities: Yes: WNL Edema: No Labs: CBC, BMP 09/26/17 05:00 09/26/17 05:00 INR, PTT INR 1.16 (0.82-1.09) H 09/24/17 23:55 Problem List - Problems (1) Seizure Assessment/Plan: -unclear source -appreciate neurology assistance, note reviewed -continue increased dose of keppra -reviewed neurosurgery note -may be beneficial to stabilize acute problem and have her follow up with her previous physicians Code(s): R56.9 - UNSPECIFIED CONVULSIONS (2) Pituitary adenoma Assessment/Plan: -currently unable to obtain MRI -may benefit from outpatient follow up with previous surgeon and physicians Code(s): D35.2 - BENIGN NEOPLASM OF PITUITARY GLAND (3) T2DM (type 2 diabetes mellitus) Assessment/Plan: -diabetic diet -continue insulin Code(s): E11.9 - TYPE 2 DIABETES MELLITUS WITHOUT COMPLICATIONS (4) Influenza A Assessment/Plan: -continue tamiflu Code(s): J10.1 - FLU DUE TO OTH IDENT INFLUENZA VIRUS W OTH RESP MANIFEST
[2017-09-26] MEDS ORDERED: PT OWN MED DRAWER 7, Y5N ONE (10:51)
[2017-09-26] MEDS: OSELTAMIVIR PHOSPHATE 75 MG CAPSULE PO SCH ×2 (10:55→21:10)
--- NOTE | 2017-09-26 11:19 | CONSULT ---
Consult - text type - Consultation Consultation Note: NEUROSURGERY CONSULTATION Patient is a 67 year old female who was admitted with altered mental status. Head CT demonstrates a 3cm pituitary/sellar mass which is consistent with Pituitary Adenoma, however, CT report describes large aneurysm in the differential diagnosis. MRI Brain from 2012 demonstrates a large pituitary adenoma with tumor surrounding and lateral to the Left carotid artery in the cavernous sinus. Tumor is approximately the same size. The patient reportedly underwent resection in June 2017 at [facility]. No notes or records are available for review and patient gives a very limited history. Patient unable to answer questionaire regarding metallic implants which is hindering our ability to obtain new MRI. With limited records, it is difficult to determine whether her tumor grew since 2012 and resection returned it to the same size or whether the tumor remained the same and only limited biopsy was performed. Potential intraoperative difficulties unknown which makes further surgery in the absence of detailed records a risky endeavor. Acute problems such as seizure activity can be managed by AED with Neurology guidance. CT does not suggest hemorrhage/apoplexy and it does not appear that there is any chiasmatic compression (MRI would be far more helpful, or at least a patient who can comply with visual field testing). Ophthalmology may be able to assess acute visual field deficits and the potential need for decompression of the chiasm. Endocrinological evaluation for pituitary axis dysfunction may be warranted. I understand that initial efforts to seek outside records/family input have not been successful. There is little role for acute Neurosurgical intervention without imaging, history and a sound understanding of what took place in June.
--- NOTE | 2017-09-26 11:57 | PN ---
Teaching Attending Note Name of Resident: Pepe Higuera ATTENDING PHYSICIAN STATEMENT I saw and evaluated the patient. I reviewed the resident's note and discussed the case with the resident. I agree with the resident's findings and plan as documented. SUBJECTIVE: Pt seen and examined in the ICU. No further seizures. More alert, awake today. Fever curve trending down. OBJECTIVE: Last Vital Signs Temp Pulse Resp BP Pulse Ox 99.2 F 76 22 146/73 95 09/26/17 10:00 09/26/17 08:00 09/26/17 10:00 09/26/17 10:00 09/26/17 09:00 Intake & Output 09/23/17 09/24/17 09/25/17 09/26/17 23:59 23:59 23:59 23:59 Intake Total 2290 900 Output Total 1625 Balance 665 900 Weight 106.594 kg 78.642 kg Gen: NAD at rest, more awake, alert Heart: RRR Lung: decreased breath sounds at the bases Abd: soft, nontender Ext: no edema CBC, BMP 09/26/17 05:00 09/26/17 05:00 Active Medications Acetaminophen (Tylenol -) 650 mg PO Q6H PRN PRN Reason: FEVER Amlodipine Besylate (Norvasc -) 5 mg PO DAILY [facility] Last Admin: 09/26/17 09:53 Dose: 5 mg Chlorhexidine Gluconate (Hibiclens For Decolonization -) 1 applic TP HS [facility] Cholecalciferol (Vitamin D3 -) 2,000 unit PO DAILY [facility] Last Admin: 09/26/17 09:53 Dose: 2,000 unit Heparin Sodium (Porcine) (Heparin -) 5,000 unit SQ TID [facility] Sodium Chloride (Normal Saline -) 1,000 mls @ 75 mls/hr IV ASDIR [facility] Last Admin: 09/26/17 09:56 Dose: 75 mls/hr Insulin Aspart (Novolog Vial Sliding Scale -) 1 vial SQ TIDAC [facility] PRN Reason: Protocol Insulin Aspart (Novolog Vial Sliding Scale -) 1 vial SQ HS [facility] PRN Reason: Protocol Levetiracetam (Keppra -) 750 mg PO BID [facility] Last Admin: 09/26/17 09:52 Dose: 750 mg Levothyroxine Sodium (Synthroid -) 75 mcg PO DAILY@0700 [facility] Metoprolol Tartrate (Lopressor -) 50 mg PO BID [facility] Last Admin: 09/26/17 09:53 Dose: 50 mg Mupirocin (Bactroban Ointment (For Decolonization) -) 1 applic NS BID [facility] Stop: 09/30/17 09:59 Last Admin: 09/26/17 09:52 Dose: 1 applic Oseltamivir Phosphate (Tamiflu -) 75 mg PO BID [facility] Stop: 09/30/17 21:59 Last Admin: 09/26/17 10:55 Dose: 75 mg Pantoprazole Sodium (Protonix -) 40 mg PO DAILY [facility] Last Admin: 09/26/17 09:53 Dose: 40 mg ASSESSMENT AND PLAN: Seizure Episode Pituitary Tumor Influenza A HTN DM Hypothyroidism - continue antiepileptics - seizure precautions - MRI brain - tamiflu - respiratory isolation - await records from prior pituitary surgery - PO as tolerated - DVT prophylaxis - can monitor on floor
[2017-09-26] MEDS ORDERED: CHLORHEXIDINE GLUCONATE 4% CLEANSER FOR DECOLONIZATION TP SCH (22:00)
[2017-09-27] MEDS: INSULIN SLIDING SCALE (NOVOLOG) 1 VIAL SQ SCH ×4 (06:07→22:43)
[2017-09-27] MEDS: LEVOTHYROXINE NA 75 MCG TABLET (FP) PO SCH (06:08)
[2017-09-27] MEDS: HEPARIN NA (PORCINE) 5,000 UNITS/ML 1ML VIAL SQ SCH ×3 (06:08→22:43)
[2017-09-27 08:11] LABS: BASO % 1.6 % (0-2.0); EOS % 10.5 % (0-4.5); HEMATOCRIT 39.2 % (32.4-45.2); HEMOGLOBIN 12.7 GM/dL (10.7-15.3); LYMPH % 50.1 % (8-40); MCH 28.8 pg (25.7-33.7); MCHC 32.3 g/dl (32.0-36.0); MEAN CELL VOLUME 89.2 fl (80-96); MEAN PLT VOLUME 9.5 fl (7.5-11.1); MONO % 12.4 % (3.8-10.2); NEUT % 25.4 % (42.8-82.8); PLATELET COUNT 209 K/MM3 (134-434); RDW 14.5 % (11.6-15.6); WHITE BLOOD COUNT 2.8 K/mm3 (4.0-10.0)
[2017-09-27 08:34] LABS: ALBUMIN 3.3 g/dl (3.4-5.0); ANION GAP 9 (8-16); BILIRUBIN,TOTAL 0.8 mg/dL (0.2-1.0); BLOOD UREA NITROGEN 3 mg/dL (7-18); CALCIUM 8.2 mg/dL (8.5-10.1); CHLORIDE 106 mmol/L (98-107); CO2 26 mmol/L (21-32); CREATININE 0.7 mg/dL (0.55-1.02); GLUCOSE,RANDOM 90 mg/dL (74-106); MAGNESIUM 1.7 mg/dL (1.8-2.4); PHOSPHOROUS 2.1 mg/dL (2.5-4.9); POTASSIUM 3.6 mmol/L (3.5-5.1); SGOT/AST 45 U/L (15-37); SGPT/ALT 54 U/L (12-78); SODIUM 141 mmol/L (136-145); TOT PROT 6.4 g/dl (6.4-8.2)
[2017-09-27 08:35] LABS: ALK PHOS 50 U/L (45-117)
[2017-09-27] MEDS ORDERED: PT OWN MED DRAWER 7, Y5N ONE ×2 (09:52→22:28)
--- NOTE | 2017-09-27 09:56 | PN ---
Progress Note (short form) - Note Progress Note: Neurology History 67 year old female with a significant past medical history of pituitary tumor s/ p resection 06/2017 and DM who presented to the ED via EMS for altered mental status. EMS also reported seizure activity on the way to the hospital for which the patient received versed 5mg. The patient was on Keppra 250mg twice daily which is typically a subtheraputic dose, increased to 750mg twice daily. She was admitted to ICU for close monitoring. 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 Reportedly, she completed surgical intervention at [facility] in June 2017. Dr. Crowell covering over weekend, ordered MRI pituatary. She was alos found to have positive Influenza A, being treated with Tamiflu. Hospitalist note reviewed and in agreement that patient may best served to follow up with prior neurosurgeon and facility. Imaging does not appear to warrent acute intervention can be pursued outpatient. NSGY note reviewed and noted does not appear apoplectic or pressuring chiasm. Active Medications Acetaminophen (Tylenol -) 650 mg PO Q6H PRN PRN Reason: FEVER Amlodipine Besylate (Norvasc -) 5 mg PO DAILY [facility] Last Admin: 09/26/17 09:53 Dose: 5 mg Cholecalciferol (Vitamin D3 -) 2,000 unit PO DAILY [facility] Last Admin: 09/26/17 09:53 Dose: 2,000 unit Heparin Sodium (Porcine) (Heparin -) 5,000 unit SQ TID [facility] Last Admin: 09/27/17 06:08 Dose: 5,000 unit Sodium Chloride (Normal Saline -) 1,000 mls @ 75 mls/hr [facility] Last Admin: 09/26/17 09:56 Dose: 75 mls/hr Insulin Aspart (Novolog Vial Sliding Scale -) 1 vial SQ TIDAC [facility] PRN Reason: Protocol Last Admin: 09/27/17 06:07 Dose: Not Given Insulin Aspart (Novolog Vial Sliding Scale -) 1 vial SQ HS [facility] PRN Reason: Protocol Last Admin: 09/26/17 21:15 Dose: Not Given Levetiracetam (Keppra -) 750 mg PO BID [facility] Last Admin: 09/26/17 21:09 Dose: 750 mg Levothyroxine Sodium (Synthroid -) 75 mcg PO DAILY@0700 [facility] Last Admin: 09/27/17 06:08 Dose: 75 mcg Metoprolol Tartrate (Lopressor -) 50 mg PO BID [facility] Last Admin: 09/26/17 21:09 Dose: 50 mg Oseltamivir Phosphate (Tamiflu -) 75 mg PO BID [facility] Stop: 09/30/17 21:59 Last Admin: 09/26/17 21:10 Dose: 75 mg Pantoprazole Sodium (Protonix -) 40 mg PO DAILY [facility] Last Admin: 09/26/17 09:53 Dose: 40 mg Physical Exam-Neuro Vital Signs Temperature 98.2 F 09/27/17 05:45 Pulse Rate 73 09/27/17 05:45 Respiratory Rate 20 09/27/17 05:45 Blood Pressure 121/54 09/27/17 05:45 O2 Sat by Pulse Oximetry (%) 97 09/26/17 21:00 Examination Alert oriented x 3, speech is normal able to follow command EOMI , vf is normal by confrontation and pupils is reactive No facial asymmetry, Moving all extremity, strenght grossly intact Sensory normal No abnormal movements CBCD WBC 2.8 K/mm3 (4.0-10.0) L 09/27/17 06:50 RBC 4.40 M/mm3 (3.60-5.2) 09/27/17 06:50 Hgb 12.7 GM/dL (10.7-15.3) 09/27/17 06:50 Hct 39.2 % (32.4-45.2) 09/27/17 06:50 MCV 89.2 fl (80-96) 09/27/17 06:50 MCHC 32.3 g/dl (32.0-36.0) 09/27/17 06:50 RDW 14.5 % (11.6-15.6) 09/27/17 06:50 Plt Count 209 K/MM3 (134-434) 09/27/17 06:50 MPV 9.5 fl (7.5-11.1) 09/27/17 06:50 CMP Sodium 141 mmol/L (136-145) 09/27/17 06:50 Potassium 3.6 mmol/L (3.5-5.1) 09/27/17 06:50 Chloride 106 mmol/L (98-107) 09/27/17 06:50 Carbon Dioxide 26 mmol/L (21-32) 09/27/17 06:50 Anion Gap 9 (8-16) 09/27/17 06:50 BUN 3 mg/dL (7-18) L 09/27/17 06:50 Creatinine 0.7 mg/dL (0.55-1.02) 09/27/17 06:50 Creat Clearance w eGFR > 60 (>60) 09/27/17 06:50 Calcium 8.2 mg/dL (8.5-10.1) L 09/27/17 06:50 Total Bilirubin 0.8 mg/dL (0.2-1.0) 09/27/17 06:50 AST 45 U/L (15-37) H D 09/27/17 06:50 ALT 54 U/L (12-78) 09/27/17 06:50 Alkaline Phosphatase 50 U/L (45-117) D 09/27/17 06:50 Total Protein 6.4 g/dl (6.4-8.2) 09/27/17 06:50 Albumin 3.3 g/dl (3.4-5.0) L 09/27/17 06:50 CT head reviewed Plan 67 year old female with a significant past medical history of pituitary tumor s/ p resection 06/2017 and DM who presented to the ED via EMS for altered mental status. EMS also reported seizure activity on the way to the hospital for which the patient received versed 5mg. The patient was on Keppra 250mg twice daily which is typically a subtheraputic dose, increased to 750mg twice daily. She was admitted to ICU for close monitoring. 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 Agree with hospitalist note, patient may best served to follow up with prior neurosurgeon and facility. Imaging does not appear to warrent acute intervention, can be pursued outpatient Continue Keppra 750mg twice daily Positive Influenza A, ID following, continue Tamiflu (5 day course recommended) Seizure free since admission Neurologically stable
[2017-09-27] MEDS: CHOLECALCIFEROL (VITAMIN D3) 1,000 UNIT TABLET (FP) PO SCH (09:57)
[2017-09-27] MEDS: PANTOPRAZOLE 40 MG TABLET (FP) PO SCH (09:57)
[2017-09-27] MEDS: amLODIPine BESYLATE 5 MG TABLET (FP) PO SCH (09:57)
[2017-09-27] MEDS: METOPROLOL TARTRATE 50 MG TABLET (FP) PO SCH ×2 (09:57→22:42)
[2017-09-27] MEDS: levETIRAcetam 250 MG TABLET (FP) PO SCH ×2 (09:57→22:42)
--- NOTE | 2017-09-27 11:18 | PN ---
Progress Note, Physician History of Present Illness: OOB in chair No complaints Denies chest pain/ dyspnea/ cough No c/o fever/ chills Temps down Leukopenic - Current Medication List Current Medications: Active Medications Acetaminophen (Tylenol -) 650 mg PO Q6H PRN PRN Reason: FEVER Amlodipine Besylate (Norvasc -) 5 mg PO DAILY [facility] Last Admin: 09/27/17 09:57 Dose: 5 mg Cholecalciferol (Vitamin D3 -) 2,000 unit PO DAILY [facility] Last Admin: 09/27/17 09:57 Dose: 2,000 unit Heparin Sodium (Porcine) (Heparin -) 5,000 unit SQ TID [facility] Last Admin: 09/27/17 06:08 Dose: 5,000 unit Sodium Chloride (Normal Saline -) 1,000 mls @ 75 mls/hr IV ASDIR [facility] Last Admin: 09/26/17 09:56 Dose: 75 mls/hr Insulin Aspart (Novolog Vial Sliding Scale -) 1 vial SQ TIDAC [facility] PRN Reason: Protocol Last Admin: 09/27/17 06:07 Dose: Not Given Insulin Aspart (Novolog Vial Sliding Scale -) 1 vial SQ HS [facility] PRN Reason: Protocol Last Admin: 09/26/17 21:15 Dose: Not Given Levetiracetam (Keppra -) 750 mg PO BID [facility] Last Admin: 09/27/17 09:57 Dose: 750 mg Levothyroxine Sodium (Synthroid -) 75 mcg PO DAILY@0700 [facility] Last Admin: 09/27/17 06:08 Dose: 75 mcg Metoprolol Tartrate (Lopressor -) 50 mg PO BID [facility] Last Admin: 09/27/17 09:57 Dose: 50 mg Oseltamivir Phosphate (Tamiflu -) 75 mg PO BID [facility] Stop: 09/30/17 21:59 Last Admin: 09/26/17 21:10 Dose: 75 mg Pantoprazole Sodium (Protonix -) 40 mg PO DAILY [facility] Last Admin: 09/27/17 09:57 Dose: 40 mg - Objective Vital Signs: Vital Signs Temperature 98.2 F 09/27/17 05:45 Pulse Rate 73 09/27/17 05:45 Respiratory Rate 20 09/27/17 05:45 Blood Pressure 121/54 09/27/17 05:45 O2 Sat by Pulse Oximetry (%) 97 09/26/17 21:00 Constitutional: Yes: No Distress Eyes: Yes: Conjunctiva Clear Cardiovascular: Yes: Regular Rate and Rhythm, S1 Respiratory: Yes: CTA Bilaterally Gastrointestinal: Yes: Normal Bowel Sounds, Soft. No: Tenderness Labs: CBC, BMP 09/27/17 06:50 09/27/17 06:50 INR, PTT INR 1.16 (0.82-1.09) H 09/24/17 23:55 Assessment/Plan Acute influenza A Leukopenia secondary to viral infection Possible aspiration S/P seizure S/P resection, pituitary tumor Comple 5d course Tamiflu
[2017-09-27] MEDS: SODIUM CHLORIDE 1,000 ML IV SCH (11:46)
[2017-09-27] MEDS: OSELTAMIVIR PHOSPHATE 75 MG CAPSULE PO SCH ×2 (11:46→22:42)
--- NOTE | 2017-09-27 12:29 | PN ---
Progress Note, Physician Chief Complaint: Ms Montiel is without complaint this am. Denies cp, sob, n/v, or any other concerns. Has no symptoms of flu. - Current Medication List Current Medications: Active Medications Acetaminophen (Tylenol -) 650 mg PO Q6H PRN PRN Reason: FEVER Amlodipine Besylate (Norvasc -) 5 mg PO DAILY [facility] Last Admin: 09/27/17 09:57 Dose: 5 mg Cholecalciferol (Vitamin D3 -) 2,000 unit PO DAILY [facility] Last Admin: 09/27/17 09:57 Dose: 2,000 unit Heparin Sodium (Porcine) (Heparin -) 5,000 unit SQ TID [facility] Last Admin: 09/27/17 06:08 Dose: 5,000 unit Sodium Chloride (Normal Saline -) 1,000 mls @ 75 mls/hr IV ASDIR [facility] Last Admin: 09/27/17 11:46 Dose: 75 mls/hr Insulin Aspart (Novolog Vial Sliding Scale -) 1 vial SQ TIDAC [facility] PRN Reason: Protocol Last Admin: 09/27/17 11:50 Dose: Not Given Insulin Aspart (Novolog Vial Sliding Scale -) 1 vial SQ HS [facility] PRN Reason: Protocol Last Admin: 09/26/17 21:15 Dose: Not Given Levetiracetam (Keppra -) 750 mg PO BID [facility] Last Admin: 09/27/17 09:57 Dose: 750 mg Levothyroxine Sodium (Synthroid -) 75 mcg PO DAILY@0700 [facility] Last Admin: 09/27/17 06:08 Dose: 75 mcg Metoprolol Tartrate (Lopressor -) 50 mg PO BID [facility] Last Admin: 09/27/17 09:57 Dose: 50 mg Oseltamivir Phosphate (Tamiflu -) 75 mg PO BID [facility] Stop: 09/30/17 21:59 Last Admin: 09/27/17 11:46 Dose: 75 mg Pantoprazole Sodium (Protonix -) 40 mg PO DAILY [facility] Last Admin: 09/27/17 09:57 Dose: 40 mg - Objective Vital Signs: Vital Signs Temperature 36.7 C 09/27/17 10:00 Pulse Rate 89 09/27/17 10:00 Respiratory Rate 20 09/27/17 10:00 Blood Pressure 119/56 09/27/17 10:00 O2 Sat by Pulse Oximetry (%) 94 L 09/27/17 10:00 Constitutional: Yes: Well Nourished, No Distress, Calm Cardiovascular: Yes: Regular Rate and Rhythm. No: Gallop, Murmur, Rub Respiratory: Yes: Regular, CTA Bilaterally. No: Rales, Rhonchi, Wheezes Gastrointestinal: Yes: Normal Bowel Sounds, Soft. No: Distention, Tenderness Extremities: Yes: WNL Edema: No Labs: CBC, BMP 09/27/17 06:50 09/27/17 06:50 INR, PTT INR 1.16 (0.82-1.09) H 09/24/17 23:55 Problem List - Problems (1) Seizure Code(s): R56.9 - UNSPECIFIED CONVULSIONS (2) Pituitary adenoma Code(s): D35.2 - BENIGN NEOPLASM OF PITUITARY GLAND (3) T2DM (type 2 diabetes mellitus) Code(s): E11.9 - TYPE 2 DIABETES MELLITUS WITHOUT COMPLICATIONS (4) Influenza A Code(s): J10.1 - FLU DUE TO OTH IDENT INFLUENZA VIRUS W OTH RESP MANIFEST (5) Leukopenia Code(s): D72.819 - DECREASED WHITE BLOOD CELL COUNT, UNSPECIFIED Qualifiers: Leukopenia type: neutropenia Neutropenia type: due to infection Qualified Code(s): D70.3 - Neutropenia due to infection Assessment/Plan (1) Seizure Assessment/Plan: -case d/w neurology -continue increased keppra dose -stable Code(s): R56.9 - UNSPECIFIED CONVULSIONS (2) Pituitary adenoma Assessment/Plan: -currently unable to obtain MRI -may benefit from outpatient follow up with previous surgeon and physicians -not urgent, discussed with patient and will set up outpatient appointment Code(s): D35.2 - BENIGN NEOPLASM OF PITUITARY GLAND (3) T2DM (type 2 diabetes mellitus) Assessment/Plan: -diabetic diet -continue insulin Code(s): E11.9 - TYPE 2 DIABETES MELLITUS WITHOUT COMPLICATIONS (4) Influenza A Assessment/Plan: -continue tamiflu, needs total of 5 days -ID note reviewed Code(s): J10.1 - FLU DUE TO OTH IDENT INFLUENZA VIRUS W OTH RESP MANIFEST (5) Neutropenia secondary to infection -secondary to influenza -monitor for improvement
[2017-09-27] MEDS ORDERED: MAGNESIUM SULF 50% (8.12 MEQ/2 ML-1 GM VIAL) IVPB ONE (15:19)
[2017-09-27] MEDS ORDERED: MAGNESIUM SULFATE IN WATER 2 GM/50 ML IVPB IVPB ONE (16:00)
[2017-09-27] MEDS: NAPH,MB-DB/K PH,MBDB POWDER PACKET PO SCH (22:43)
[2017-09-28] MEDS: HEPARIN NA (PORCINE) 5,000 UNITS/ML 1ML VIAL SQ SCH ×2 (06:02→14:03)
[2017-09-28] MEDS: SODIUM CHLORIDE 1,000 ML IV SCH ×2 (06:02→06:56)
[2017-09-28] MEDS: LEVOTHYROXINE NA 75 MCG TABLET (FP) PO SCH (06:03)
[2017-09-28] MEDS: INSULIN SLIDING SCALE (NOVOLOG) 1 VIAL SQ SCH ×2 (06:08→12:44)
[2017-09-28 07:34] LABS: BASO % 1.4 % (0-2.0); EOS % 9.7 % (0-4.5); HEMATOCRIT 38.2 % (32.4-45.2); HEMOGLOBIN 12.5 GM/dL (10.7-15.3); LYMPH % 52.4 % (8-40); MCH 29.2 pg (25.7-33.7); MCHC 32.8 g/dl (32.0-36.0); MEAN CELL VOLUME 89.3 fl (80-96); MEAN PLT VOLUME 10.2 fl (7.5-11.1); MONO % 9.6 % (3.8-10.2); NEUT % 26.9 % (42.8-82.8); PLATELET COUNT 219 K/MM3 (134-434); RBC 4.27 M/mm3 (3.60-5.2); RDW 14.6 % (11.6-15.6); WHITE BLOOD COUNT 2.8 K/mm3 (4.0-10.0)
[2017-09-28 08:17] LABS: CHLORIDE 108 mmol/L (98-107); POTASSIUM 3.9 mmol/L (3.5-5.1); SODIUM 143 mmol/L (136-145)
[2017-09-28 08:23] LABS: ANION GAP 9 (8-16); BLOOD UREA NITROGEN 3 mg/dL (7-18); CALCIUM 8.2 mg/dL (8.5-10.1); CO2 26 mmol/L (21-32); CREATININE 0.6 mg/dL (0.55-1.02); GLUCOSE,RANDOM 90 mg/dL (74-106); MAGNESIUM 2.1 mg/dL (1.8-2.4); PHOSPHOROUS 2.2 mg/dL (2.5-4.9)
--- NOTE | 2017-09-28 09:45 | PN ---
Progress Note (short form) - Note Progress Note: Neurology History 67 year old female with a significant past medical history of pituitary tumor s/ p resection 06/2017 and DM who presented to the ED via EMS for altered mental status. EMS also reported seizure activity on the way to the hospital for which the patient received versed 5mg. The patient was on Keppra 250mg twice daily which is typically a subtheraputic dose, increased to 750mg twice daily. She was admitted to ICU and downgraded to floor. 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 Reportedly, she completed surgical intervention at [facility] in June 2017. Dr. Crowell covering over weekend, ordered MRI pituatary. She was also found to have positive Influenza A, being treated with Tamiflu. Hospitalist note reviewed and in agreement that patient may best served to follow up with prior neurosurgeon and facility. Imaging does not appear to warrant acute intervention can be pursued outpatient. NSGY note reviewed and noted does not appear apoplectic or pressuring chiasm. No new neurologic events at this time. Active Medications Acetaminophen (Tylenol -) 650 mg PO Q6H PRN PRN Reason: FEVER Amlodipine Besylate (Norvasc -) 5 mg PO DAILY [facility] Last Admin: 09/27/17 09:57 Dose: 5 mg Cholecalciferol (Vitamin D3 -) 2,000 unit PO DAILY [facility] Last Admin: 09/27/17 09:57 Dose: 2,000 unit Heparin Sodium (Porcine) (Heparin -) 5,000 unit SQ TID [facility] Last Admin: 09/28/17 06:02 Dose: 5,000 unit Sodium Chloride (Normal Saline -) 1,000 mls @ 75 mls/hr IV ASDIR [facility] Last Admin: 09/28/17 06:56 Dose: Not Given Insulin Aspart (Novolog Vial Sliding Scale -) 1 vial SQ TIDAC [facility] PRN Reason: Protocol Last Admin: 09/28/17 06:08 Dose: Not Given Insulin Aspart (Novolog Vial Sliding Scale -) 1 vial SQ HS [facility] PRN Reason: Protocol Last Admin: 09/27/17 22:43 Dose: Not Given Levetiracetam (Keppra -) 750 mg PO BID [facility] Last Admin: 09/27/17 22:42 Dose: 750 mg Levothyroxine Sodium (Synthroid -) 75 mcg PO DAILY@0700 [facility] Last Admin: 09/28/17 06:03 Dose: 75 mcg Metoprolol Tartrate (Lopressor -) 50 mg PO BID [facility] Last Admin: 09/27/17 22:42 Dose: 50 mg Oseltamivir Phosphate (Tamiflu -) 75 mg PO BID [facility] Stop: 09/30/17 21:59 Last Admin: 09/27/17 22:42 Dose: 75 mg Pantoprazole Sodium (Protonix -) 40 mg PO DAILY [facility] Last Admin: 09/27/17 09:57 Dose: 40 mg Potassium Phos/Sodium Phos (Phos-Nak Packet -) 1 packet PO BID [facility] Last Admin: 09/27/17 22:43 Dose: 1 packet Physical Exam-Neuro Vital Signs Temperature 98.1 F 09/28/17 06:00 Pulse Rate 115 H 09/28/17 06:00 Respiratory Rate 20 09/28/17 06:00 Blood Pressure 107/64 09/28/17 06:00 O2 Sat by Pulse Oximetry (%) 93 L 09/27/17 21:00 Examination Alert oriented x 3, speech is normal able to follow command EOMI , vf is normal by confrontation and pupils is reactive No facial asymmetry, Moving all extremity, strenght grossly intact Sensory normal No abnormal movements CBCD WBC 2.8 K/mm3 (4.0-10.0) L 09/28/17 05:35 RBC 4.27 M/mm3 (3.60-5.2) 09/28/17 05:35 Hgb 12.5 GM/dL (10.7-15.3) 09/28/17 05:35 Hct 38.2 % (32.4-45.2) 09/28/17 05:35 MCV 89.3 fl (80-96) 09/28/17 05:35 MCHC 32.8 g/dl (32.0-36.0) 09/28/17 05:35 RDW 14.6 % (11.6-15.6) 09/28/17 05:35 Plt Count 219 K/MM3 (134-434) 09/28/17 05:35 MPV 10.2 fl (7.5-11.1) 09/28/17 05:35 CMP Sodium 143 mmol/L (136-145) 09/28/17 05:35 Potassium 3.9 mmol/L (3.5-5.1) 09/28/17 05:35 Chloride 108 mmol/L (98-107) H 09/28/17 05:35 Carbon Dioxide 26 mmol/L (21-32) 09/28/17 05:35 Anion Gap 9 (8-16) 09/28/17 05:35 BUN 3 mg/dL (7-18) L 09/28/17 05:35 Creatinine 0.6 mg/dL (0.55-1.02) 09/28/17 05:35 Creat Clearance w eGFR > 60 (>60) 09/27/17 06:50 Calcium 8.2 mg/dL (8.5-10.1) L 09/28/17 05:35 Total Bilirubin 0.8 mg/dL (0.2-1.0) 09/27/17 06:50 AST 45 U/L (15-37) H D 09/27/17 06:50 ALT 54 U/L (12-78) 09/27/17 06:50 Alkaline Phosphatase 50 U/L (45-117) D 09/27/17 06:50 Total Protein 6.4 g/dl (6.4-8.2) 09/27/17 06:50 Albumin 3.3 g/dl (3.4-5.0) L 09/27/17 06:50 CT head reviewed Plan 67 year old female with a significant past medical history of pituitary tumor s/ p resection 06/2017 and DM who presented to the ED via EMS for altered mental status. EMS also reported seizure activity on the way to the hospital for which the patient received versed 5mg. The patient was on Keppra 250mg twice daily which is typically a subtheraputic dose, increased to 750mg twice daily. She was admitted to ICU for close monitoring. She completed CT head which showed suprasellar mass. Agree with hospitalist note, patient may best served to follow up with prior neurosurgeon and facility. Imaging does not appear to warrent acute intervention, can be pursued outpatient Continue Keppra 750mg twice daily Positive Influenza A, ID following, continue Tamiflu (5 day course recommended) Seizure free since admission Neurologically stable
[2017-09-28] MEDS: METOPROLOL TARTRATE 50 MG TABLET (FP) PO SCH (09:51)
[2017-09-28] MEDS: levETIRAcetam 250 MG TABLET (FP) PO SCH (09:52)
[2017-09-28] MEDS: amLODIPine BESYLATE 5 MG TABLET (FP) PO SCH (09:52)
[2017-09-28] MEDS: CHOLECALCIFEROL (VITAMIN D3) 1,000 UNIT TABLET (FP) PO SCH (09:52)
[2017-09-28] MEDS: PANTOPRAZOLE 40 MG TABLET (FP) PO SCH (09:53)
[2017-09-28] MEDS: OSELTAMIVIR PHOSPHATE 75 MG CAPSULE PO SCH (09:54)
[2017-09-28] MEDS: NAPH,MB-DB/K PH,MBDB POWDER PACKET PO SCH (09:54)
--- NOTE | 2017-09-28 09:58 | PN ---
Progress Note, Physician History of Present Illness: Awake, alert in bed No complaints Denies chest pain/ dyspnea/ cough No c/o fever/ chills - Current Medication List Current Medications: Active Medications Acetaminophen (Tylenol -) 650 mg PO Q6H PRN PRN Reason: FEVER Amlodipine Besylate (Norvasc -) 5 mg PO DAILY [facility] Last Admin: 09/27/17 09:57 Dose: 5 mg Cholecalciferol (Vitamin D3 -) 2,000 unit PO DAILY [facility] Last Admin: 09/27/17 09:57 Dose: 2,000 unit Heparin Sodium (Porcine) (Heparin -) 5,000 unit SQ TID [facility] Last Admin: 09/28/17 06:02 Dose: 5,000 unit Sodium Chloride (Normal Saline -) 1,000 mls @ 75 mls/hr IV ASDIR [facility] Last Admin: 09/28/17 06:56 Dose: Not Given Insulin Aspart (Novolog Vial Sliding Scale -) 1 vial SQ TIDAC [facility] PRN Reason: Protocol Last Admin: 09/28/17 06:08 Dose: Not Given Insulin Aspart (Novolog Vial Sliding Scale -) 1 vial SQ HS [facility] PRN Reason: Protocol Last Admin: 09/27/17 22:43 Dose: Not Given Levetiracetam (Keppra -) 750 mg PO BID [facility] Last Admin: 09/27/17 22:42 Dose: 750 mg Levothyroxine Sodium (Synthroid -) 75 mcg PO DAILY@0700 [facility] Last Admin: 09/28/17 06:03 Dose: 75 mcg Metoprolol Tartrate (Lopressor -) 50 mg PO BID [facility] Last Admin: 09/27/17 22:42 Dose: 50 mg Oseltamivir Phosphate (Tamiflu -) 75 mg PO BID [facility] Stop: 09/30/17 21:59 Last Admin: 09/27/17 22:42 Dose: 75 mg Pantoprazole Sodium (Protonix -) 40 mg PO DAILY [facility] Last Admin: 09/27/17 09:57 Dose: 40 mg Potassium Phos/Sodium Phos (Phos-Nak Packet -) 1 packet PO BID [facility] Last Admin: 09/27/17 22:43 Dose: 1 packet - Objective Vital Signs: Vital Signs Temperature 98.1 F 09/28/17 06:00 Pulse Rate 115 H 09/28/17 06:00 Respiratory Rate 20 09/28/17 06:00 Blood Pressure 107/64 09/28/17 06:00 O2 Sat by Pulse Oximetry (%) 93 L 09/27/17 21:00 Constitutional: Yes: No Distress Eyes: Yes: Conjunctiva Clear Cardiovascular: Yes: Regular Rate and Rhythm, S1, S2 Respiratory: Yes: CTA Bilaterally Gastrointestinal: Yes: Normal Bowel Sounds, Soft. No: Tenderness Edema: No Labs: CBC, BMP 09/28/17 05:35 09/28/17 05:35 INR, PTT INR 1.16 (0.82-1.09) H 09/24/17 23:55 Assessment/Plan Acute influenza A Leukopenia secondary to viral infection Possible aspiration S/P seizure S/P resection, pituitary tumor Comple 5d course Tamiflu OK for discharge on po Tamiflu
--- NOTE | 2017-09-28 11:16 | DS ---
Physical Examination Vital Signs: Vital Signs Temperature 36.9 C 09/28/17 10:00 Pulse Rate 72 09/28/17 10:00 Respiratory Rate 20 09/28/17 10:00 Blood Pressure 106/59 09/28/17 10:00 O2 Sat by Pulse Oximetry (%) 93 L 09/28/17 10:00 Constitutional: Yes: Well Nourished, No Distress, Calm Cardiovascular: Yes: Regular Rate and Rhythm. No: Gallop, Murmur, Rub Respiratory: Yes: Regular, CTA Bilaterally. No: Rales, Rhonchi, Wheezes Gastrointestinal: Yes: Normal Bowel Sounds, Soft. No: Distention, Tenderness Extremities: Yes: WNL Edema: No Labs: CBC, BMP 09/28/17 05:35 09/28/17 05:35 Discharge Summary Reason For Visit: AMS/SEIZURE/INFLUENZA VIRUS Current Active Problems Altered mental status (Acute) Dehydration (Acute) Elevated troponin I level (Acute) Fever (Acute) Influenza A (Acute) Leukopenia (Acute) Pituitary adenoma (Acute) Pneumonia (Acute) Rhonchi (Acute) Seizure (Acute) T2DM (type 2 diabetes mellitus) (Acute) Hospital Course: (1) Seizure Code(s): R56.9 - UNSPECIFIED CONVULSIONS (2) Pituitary adenoma Code(s): D35.2 - BENIGN NEOPLASM OF PITUITARY GLAND (3) T2DM (type 2 diabetes mellitus) Code(s): E11.9 - TYPE 2 DIABETES MELLITUS WITHOUT COMPLICATIONS (4) Influenza A Code(s): J10.1 - FLU DUE TO OTH IDENT INFLUENZA VIRUS W OTH RESP MANIFEST (5) Leukopenia Code(s): D72.819 - DECREASED WHITE BLOOD CELL COUNT, UNSPECIFIED Qualifiers: Leukopenia type: neutropenia Neutropenia type: due to infection Qualified Code(s): D70.3 - Neutropenia due to infection Mrs Montiel is a pleasant 67 year old female who came in with seizures and was found to have influenza. She was admitted to the hospital and seen by neurology. Her keppra was increased and she did not have second seizure. CT scan showed pituitary adenoma, it was unclear if this was treated in the past secondary to patient being a poor historian. Her issues were not acute though and recommended she follow up with her outpatient neurosurgery at [facility]. This was reiterated multiple times and patient understood. She was seen by ID and started on tamiflu. She had neutropenia secondary to influenza but this stabilized. She is currently stable and ready for discharge home. 32 minutes spent in preparation of this discharge Condition: Stable - Instructions Diet, Activity, Other Instructions: resume previous diet and activity Referrals: Alex Kaur MD [Staff Physician] - Disposition: HOME - Home Medications Comprehensive Discharge Medication List: Ambulatory Orders Amlodipine Besylate 5 mg PO DAILY 09/05/17 Cholecalciferol (Vitamin D3) [Vitamin D3] 2,000 unit PO DAILY 09/05/17 Levothyroxine Sodium [Levo-T] 75 mcg PO DAILY 09/05/17 Metoprolol Tartrate 50 mg PO BID 09/05/17 Pantoprazole Sodium 40 mg PO DAILY 09/05/17 Levetiracetam [Keppra -] 750 mg PO BID #120 tablet 09/28/17 Oseltamivir Phosphate [Tamiflu -] 75 mg PO BID #4 capsule 09/28/17
--- NOTE | 2017-09-28 13:29 | PN ---
Progress Note (short form) - Note Progress Note: Overall appears better. No CP or SOB. Intake & Output 09/25/17 09/26/17 09/27/17 09/28/17 23:59 23:59 23:59 23:59 Intake Total 2290 2135 2110 250 Output Total 1625 1400 1800 Balance 665 735 310 250 Weight 173 lb 6 oz Last Vital Signs Temp Pulse Resp BP Pulse Ox 98.4 F 72 20 106/59 93 L 09/28/17 10:00 09/28/17 10:00 09/28/17 10:00 09/28/17 10:00 09/28/17 10:00 Active Medications Acetaminophen (Tylenol -) 650 mg PO Q6H PRN PRN Reason: FEVER Amlodipine Besylate (Norvasc -) 5 mg PO DAILY [facility] Last Admin: 09/28/17 09:52 Dose: 5 mg Cholecalciferol (Vitamin D3 -) 2,000 unit PO DAILY [facility] Last Admin: 09/28/17 09:52 Dose: 2,000 unit Heparin Sodium (Porcine) (Heparin -) 5,000 unit SQ TID [facility] Last Admin: 09/28/17 06:02 Dose: 5,000 unit Sodium Chloride (Normal Saline -) 1,000 mls @ 75 mls/hr IV ASDIR [facility] Last Admin: 09/28/17 06:56 Dose: Not Given Insulin Aspart (Novolog Vial Sliding Scale -) 1 vial SQ TIDAC [facility] PRN Reason: Protocol Last Admin: 09/28/17 12:44 Dose: Not Given Insulin Aspart (Novolog Vial Sliding Scale -) 1 vial SQ HS [facility] PRN Reason: Protocol Last Admin: 09/27/17 22:43 Dose: Not Given Levetiracetam (Keppra -) 750 mg PO BID [facility] Last Admin: 09/28/17 09:52 Dose: 750 mg Levothyroxine Sodium (Synthroid -) 75 mcg PO DAILY@0700 [facility] Last Admin: 09/28/17 06:03 Dose: 75 mcg Metoprolol Tartrate (Lopressor -) 50 mg PO BID [facility] Last Admin: 09/28/17 09:51 Dose: 50 mg Oseltamivir Phosphate (Tamiflu -) 75 mg PO BID [facility] Stop: 09/30/17 21:59 Last Admin: 09/28/17 09:54 Dose: 75 mg Pantoprazole Sodium (Protonix -) 40 mg PO DAILY [facility] Last Admin: 09/28/17 09:53 Dose: 40 mg Potassium Phos/Sodium Phos (Phos-Nak Packet -) 1 packet PO BID [facility] Last Admin: 09/28/17 09:54 Dose: 1 packet Gen: NAD Heart: RRR Lung: decreased breath sounds at the bases Abd: soft, nontender Ext: no edema Laboratory Results - last 24 hr 09/27/17 09/27/17 09/28/17 17:19 22:41 05:35 WBC 2.8 L RBC 4.27 Hgb 12.5 Hct 38.2 MCV 89.3 MCH 29.2 MCHC 32.8 RDW 14.6 Plt Count 219 MPV 10.2 Neutrophils % 26.9 L Lymphocytes % 52.4 H Monocytes % 9.6 Eosinophils % 9.7 H Basophils % 1.4 Sodium Potassium Chloride Carbon Dioxide Anion Gap BUN Creatinine POC Glucometer 92 96 Random Glucose Calcium Phosphorus Magnesium 09/28/17 09/28/17 09/28/17 05:35 06:07 11:45 WBC RBC Hgb Hct MCV MCH MCHC RDW Plt Count MPV Neutrophils % Lymphocytes % Monocytes % Eosinophils % Basophils % Sodium 143 Potassium 3.9 Chloride 108 H Carbon Dioxide 26 Anion Gap 9 BUN 3 L Creatinine 0.6 POC Glucometer 91 108 Random Glucose 90 Calcium 8.2 L Phosphorus 2.2 L Magnesium 2.1 ASSESSMENT AND PLAN: Seizure Episode Pituitary Tumor Influenza A HTN DM Hypothyroidism - AEDs per Neuro - seizure precautions - Tamiflu - PO as tolerated - DVT prophylaxis - D/C planning Dr De La Cruz
[2017-09-28 14:05] VITALS: BP 114/65; PULSE 71; TEMP 98.7
== END 2017-09-28 16:24 | disposition home or self-care (01) | DRG 194 ==
LOC: JER 22:43 → JERBED 09-25 02:21 → UNDOADMIN 09-25 02:25 → JICU 09-25 03:59 → J4S 09-26 17:00
PROVIDERS: ADMIT Internal Medicine; ATTEND Internal Medicine
DX: J11.08 Influenza due to unidentified influenza virus with specified pneumonia (principal); N17.9 Acute kidney failure, unspecified; R56.9 Unspecified convulsions; D35.2 Benign neoplasm of pituitary gland; E11.9 Type 2 diabetes mellitus without complications; D70.9 Neutropenia, unspecified; I10 Essential (primary) hypertension; E03.9 Hypothyroidism, unspecified; E78.5 Hyperlipidemia, unspecified; R41.82 Altered mental status, unspecified; E86.0 Dehydration; J11.81 Influenza due to unidentified influenza virus with encephalopathy; J69.0 Pneumonitis due to inhalation of food and vomit; D72.819 Decreased white blood cell count, unspecified
CPT/HCPCS: 36415; 70450-TC; 70543-TC; 71045-TC; 80048; 80053; 80061; 81003; 81015; 82550; 82553; 82803; 82962; 83605; 83721; 83735; 84100; 84443; 84484; 85025; 85610; 85730; 87040; 87081; 87086; 87804; 87899; 93005; 93010; 93306-TC; 99285-25